=== PATIENT | male | born 1980 | race Caucasian/White ===

== ENCOUNTER 2016-05-16 00:56 | Emergency (ER) | payer OTHER ==
[~2016-05-16] VITALS: Ht 177.8 cm; Wt 96.3 kg
[2016-05-16 01:00] VITALS: TEMP 37.2; Ht 177.8 cm; Wt 96.3 kg
[2016-05-16] MEDS ORDERED: BENZ1CAP90 PO (02:19)
[2016-05-16] MEDS ORDERED: HYDR5SYP11 PO (02:19)
--- NOTE | 2016-05-16 02:22 | EMERGENCY ROOM VISIT NOTE ---
History First contact with patient: 01:03 Chief Complaint: COUGH Stated Complaint: COUGH Nursing Triage Summary: Productive cough since Thursday. Unable to sleep. History of Present Illness The patient is a 36 year old male who presents to the Emergency Room with complaints of a productive cough for the past 4 days. The patient reports that he has had a cough productive of clear phlegm for the past 4 days. He has also had a runny nose and a sore throat, which he feels is due to coughing. He has had difficulty sleeping due to the cough. He rates his discomfort a 6/10. He denies any chest pain or shortness of breath. He did not receive an influenza vaccine this year. He has taken Vicks [id number] with no relief. Review of Systems A complete 10-point Review of Systems was discussed with the patient, with pertinent positives and negatives listed in the History of Present Illness. All remaining Review of Systems questions can be considered negative unless otherwise specified. Past Medical/Surgical History Medical Problems: (1) Acute Bronchitis (2) Asthma, Unspecified (3) Contact dermatitis (4) Contact dermatitis (5) Contact dermatitis (6) Dental caries (7) Dental caries (8) Dental caries (9) Pain, dental (10) Pain, dental (11) Personal History, Pneumonia (Recurrent) (12) Tobacco Use Disorder Family History Diabetes mellitus FH: heart disease Social History Smoking Status: Current Every Day Smoker Alcohol Use: occasionally Marital Status: single Housing Status: lives with family Occupation Status: employed Current/Historical Medications Scheduled PRN Benzonatate (Tessalon Perles), 200 MG PO TID PRN for Cough Allergies Coded Allergies: No Known Allergies (Unverified , 05/16/16) Physical Exam Vital Signs Date Time Temp Pulse Resp B/P Pulse Ox O2 Delivery O2 Flow Rate FiO2 05/16/16 02:26 77 16 134/78 97 05/16/16 01:13 95 Room Air 05/16/16 01:00 37.2 79 20 132/91 95 Room Air Physical Exam VITALS: Vitals are noted on the nurse's note and reviewed by myself. Vital signs stable. GENERAL: This is a 36-year-old male, in no acute distress, nondiaphoretic, well- developed well-nourished. SKIN: Capillary reflex less than 2 seconds. HEENT: Normocephalic. PERRLA. EOMI. Nares patent. Mucous membranes moist. Neck is supple without nuchal rigidity. HEART: Regular rate and rhythm without murmurs gallops or rubs. LUNGS: Clear to auscultation bilaterally without wheezes, rales or rhonchi. No retractions or accessory muscle use. ABDOMEN: Positive bowel sounds x 4. Soft, nontender to palpation. NEURO: Patient was alert and oriented to person place and time. Medical Decision & Procedures Medications Administered Medications (Trade) Dose Ordered Sig/Lidia Route Start Time Stop Time Status Last Admin Dose Admin Hydrocodone Bit/ Homatropine Methylb (Hycodan Elix Homepack 5/1.5MG/ 5ML) 1 homepack UD ONCE PO 05/16/16 02:30 05/16/16 02:31 DC 05/16/16 02:25 1 HOMEPACK Medical Decision Differential diagnosis includes influenza, pneumonia, bronchitis, viral syndrome , among others. The patient was evaluated as above. Lungs are clear on examination. Patient is afebrile. Chest x-ray was performed and read by myself and my attending with no evidence of pneumonia, pneumothorax or cardiomegaly. He likely has an acute bronchitis. The patient is a smoker. He was given a home pack of Hycodan cough syrup and prescription for Tessalon Perles. He was instructed to follow-up with his primary care provider or return for worsening symptoms. He verbalized understanding of my assessment and treatment plan and was discharged home in good condition. Impression Primary Impression: Cough Departure Information Dispostion Home / Self-Care Condition GOOD Prescriptions Benzonatate (Tessalon Perles) 200 Mg Cap 200 MG PO TID Y for Cough, #30 CAP Prov: Makenzie Natarajan ., ELIZABETH 05/16/16 Referrals No Doctor, Assigned (PCP) Patient Instructions My [facility] Additional Instructions Hycodan cough syrup as needed. This is a narcotic medication. You may not drink or drive while taking this medication. Tessalon Perles as prescribed. Follow-up with your primary care provider if your symptoms do not improve in the next 4-5 days.
[2016-05-16 02:26] VITALS: BP 134/78; PULSE 77; O2SAT 97
[2016-05-16] MEDS ORDERED: HYCODAN 60ML BOTTLE HOMEPACK PO ONE (02:30)
--- NOTE | 2016-05-16 06:36 | DIAGNOSTIC IMAGING REPORT ---
CHEST 2 VIEWS ROUTINE CLINICAL HISTORY: productive cough COMPARISON STUDY: No previous studies for comparison. FINDINGS: The cardiac and mediastinal contours are normal. There is no evidence of focal pulmonary consolidation. There is no evidence of failure. No pleural effusions are visualized.[ IMPRESSION: No active disease in the chest. Electronically signed by: Vishal Burch M.D. 05/16/2016 6:34 AM Dictated Date/Time: 05/16/2016 6:34 AM
== END 2016-05-16 02:27 | disposition home or self-care (01) ==
LOC: C.EDB 00:57
DX: R05 Cough (principal); J02.9 Acute pharyngitis, unspecified; J45.909 Unspecified asthma, uncomplicated; Z87.01 Personal history of pneumonia (recurrent); Z87.09 Personal history of other diseases of the respiratory system; Z83.3 Family history of diabetes mellitus; Z82.49 Family history of ischemic heart disease and other diseases of the circulatory system; F17.200 Nicotine dependence, unspecified, uncomplicated

== ENCOUNTER 2017-04-23 17:45 | Emergency (ER) | payer OTHER ==
[~2017-04-23] VITALS: Ht 175.3 cm; Wt 88.6 kg
[2017-04-23 17:53] VITALS: Ht 175.3 cm; Wt 88.6 kg
[2017-04-23] MEDS ORDERED: ACET-1256 PO (19:52)
--- NOTE | 2017-04-23 19:52 | EMERGENCY ROOM VISIT NOTE ---
History Report prepared by Arleth: Evette Rasheed Under the Supervision of: Dr. Cody Peter M.D. First contact with patient: 19:25 Chief Complaint: FLU LIKE SX Stated Complaint: FEVER, COUGHING, HURT ALL OVER History of Present Illness The patient is a 37 year old male who presents to the Emergency Room with complaints of worsening flu-like symptoms starting a week ago. The patient states that he has not been able to sleep well since this all started. The patient complains of body aches, productive cough, fever, runny nose, diarrhea, and headache. He states that he has chest pain when he coughs and it produces green phlegm. The patient denies nausea, vomiting, ear ache, and getting the flu shot this year. Source of History: patient Onset: a week ago Position: other (global) Quality: other (flu-like) Timing: worsening Associated Symptoms: + fevers, + headache, + cough (productive), + chest pain, + diarrhea, No nausea, No vomiting Note: The patient complains of body aches and runny nose. The patient denies an ear ache. Review of Systems See HPI for pertinent positives & negatives. A total of 10 systems reviewed and were otherwise negative. Past Medical & Surgical Medical Problems: (1) Acute Bronchitis (2) Asthma, Unspecified (3) Contact dermatitis (4) Contact dermatitis (5) Contact dermatitis (6) Dental caries (7) Dental caries (8) Dental caries (9) Pain, dental (10) Pain, dental (11) Personal History, Pneumonia (Recurrent) (12) Tobacco Use Disorder Family History Diabetes mellitus FH: heart disease Social History Smoking Status: Current Every Day Smoker Alcohol Use: occasionally Marital Status: single Housing Status: lives with family Occupation Status: employed Current/Historical Medications Scheduled Acetaminophen (Tylenol), 1,000 MG PO DAILY Azithromycin (Zithromax Z-Antonio), 0 PO UD Oseltamivir (Tamiflu), 75 MG PO BID Allergies Coded Allergies: No Known Allergies (Unverified , 04/23/17) Physical Exam Vital Signs Date Time Temp Pulse Resp B/P (MAP) Pulse Ox O2 Delivery O2 Flow Rate FiO2 04/23/17 21:14 77 16 118/74 97 Room Air 04/23/17 20:18 37.5 69 16 125/65 97 Room Air 04/23/17 19:01 37.0 88 18 115/76 96 Room Air 04/23/17 17:53 36.9 93 18 136/84 96 Room Air Physical Exam General: Non-ill appearing older male in no acute distress. HEENT: Normal cephalic atraumatic. Pupils are equal round and reactive to light. Extraocular movements are intact. Oropharynx is pink with moist mucous membranes. No swelling of the mouth lips or tongue. Normal TMs. Neck: Supple with a midline trachea. No meningeal signs or stiffness, no JVD or bruits. No Stridor. Chest: Clear to auscultation bilaterally. No wheezes or rhonchi. No increased work of breathing. Deep hacking intermittent cough. No respiratory distress. Heart: regular rate and rhythm. Abdomen: Soft nontender, nondistended without rebound guarding or rigidity. Extremities: No cyanosis clubbing or edema. No calf tenderness or assymetry Spine/Back. Non tender to palpation. No CVA tenderness Skin: Good turgor without rashes. Neurologic exam: Cranial nerves two through 12 are intact. Motor and sensation are intact and symmetrical throughout. Medical Decision & Procedures ER Provider Diagnostic Interpretation: Radiology results as stated below per my review and radiologist interpretation: CHEST ONE VIEW PORTABLE CLINICAL HISTORY: 37 years-old Male presenting with CHEST PAIN. TECHNIQUE: Portable upright AP view of the chest was obtained. COMPARISON: 05/16/2016. FINDINGS: Cardiomediastinal silhouette normal. Lungs and pleural spaces clear. Osseous structures normal. Upper abdomen normal. IMPRESSION: 1. No acute cardiopulmonary disease. Electronically signed by: Laci Muñoz M.D. 04/23/2017 7:50 PM Dictated Date/Time: 04/23/2017 7:49 PM Laboratory Results Test 04/23/17 19:45 Influenza Type A Antigen POS for Influ A (NEG) Influenza Type B Antigen Neg for Influ B (NEG) Laboratory studies as stated above per my review. Medications Administered Medications (Trade) Dose Ordered Sig/Lidia Route Start Time Stop Time Status Last Admin Dose Admin Acetaminophen (Tylenol Tab) 650 mg NOW STAT PO 04/23/17 21:02 04/23/17 21:04 DC 04/23/17 21:11 650 MG Oseltamivir Phosphate (Tamiflu Cap) 75 mg NOW STAT PO 04/23/17 21:02 04/23/17 21:04 DC 04/23/17 21:11 75 MG Azithromycin (Zithromax Tab) 500 mg NOW ONCE PO 04/23/17 21:15 04/23/17 21:16 DC 04/23/17 21:11 500 MG ECG Indication: chest pain Rate (beats per minute): 75 Rhythm: normal sinus Findings: no acute ischemic change, no ectopy, other (normal QT-c) Change: Patient's electrocardiogram was interpreted by me. ED Course 1926: Past medical records reviewed. The patient was evaluated in room C12B, and a complete history and physical examination were performed. 2054: Upon reevaluation, the patient is resting comfortably. I discussed the results and treatment plan with him. He verbalized agreement of the treatment plan. The patient was discharged home. Medical Decision Differential diagnoses include bronchitis, pneumonia, influenza, cardiac disease , viral illness. This patient comes in as described above he is flulike symptoms and a cough. They're going on for several days. He looks well on exam for except for coughing. He has a low-grade temperature. He is non-hypoxemic. His lungs are clears. Chest x-ray was unremarkable. EKG does not show anything to suggest acute coronary syndrome or arrhythmia. He is nontoxic and non-lethargic. Influenza was positive. I'll treat him with Tamiflu as well as his daughter. He will be charged home. He'll follow-up with his regular doctor for recheck and couple days or return if any new problems or concerns Medication Reconcilliation Current Medication List: was personally reviewed by me Blood Pressure Screening Patient's blood pressure: Normal blood pressure Blood pressure disposition: Did not require urgent referral Impression Primary Impression: Influenza Additional Impression: Bronchitis Scribe Attestation The scribe's documentation has been prepared under my direction and personally reviewed by me in its entirety. I confirm that the note above accurately reflects all work, treatment, procedures, and medical decision making performed by me. Departure Information Dispostion Home / Self-Care Prescriptions Oseltamivir (Tamiflu) 75 Mg Cap 75 MG PO BID, #10 CAP Prov: Cody Peter M.D. 04/23/17 Azithromycin (ZITHROMAX Z-ANTONIO) 250 Mg Tab 0 PO UD, #1 PKT Prov: Cody Peter M.D. 04/23/17 Referrals No Doctor, Assigned (PCP) Forms HOME CARE DOCUMENTATION FORM, IMPORTANT VISIT INFORMATION Patient Instructions My [facility] [place] [facility] Additional Instructions Rest. Drink plenty of fluids. Use Tamiflu 75 mg twice a day for 5 days Use azithromycin Z-Antonio as directed May use [id number] cough suppressant such as Robitussin-DM May use Tylenol/acetaminophen a maximum of 650 mgs every 6 hours. Do not take with any other medications that contain acetaminophen. Do not exceed this dosing as it can be harmful to your liver Return if: Worsening symptoms, any new problems or concerns. Problem Qualifiers
[2017-04-23 20:18] VITALS: TEMP 37.5
[2017-04-23 20:26] LABS: INFLUENZA B ANTIGEN Neg for Influ B (NEG)
[2017-04-23] MEDS ORDERED: OSELTAMIVIR PHOSPHATE 75 MG CAP PO STA (21:02)
[2017-04-23] MEDS ORDERED: ACETAMINOPHEN 325 MG TAB PO STA (21:02)
[2017-04-23] MEDS ORDERED: OSEL75CA12 PO (21:05)
[2017-04-23] MEDS ORDERED: AZITTAB PO (21:05)
[2017-04-23 21:14] VITALS: BP 118/74; PULSE 77; O2SAT 97
[2017-04-23] MEDS ORDERED: AZITHROMYCIN 250 MG TAB PO ONE (21:15)
== END 2017-04-23 21:15 | disposition home or self-care (01) ==
LOC: C.EDB 17:46 → C.EDC 21:15
DX: J11.1 Influenza due to unidentified influenza virus with other respiratory manifestations (principal); F17.210 Nicotine dependence, cigarettes, uncomplicated

== ENCOUNTER 2022-11-12 09:46 | Inpatient (IN) ==
[2022-11-12] MEDS ORDERED: SODIUM CHLORIDE 0.9% 1,000 ML IV ONE ×2 (10:17→11:26)
[2022-11-12] MEDS ORDERED: fentaNYL citrate PF 100 MCG/2 ML VIAL IV STA (10:17)
--- NOTE | 2022-11-12 10:20 | Emergency Department Note ---
Impression & Plan Diverticulitis ED Provider Note HISTORY OF PRESENT ILLNESS: Patient is a 42-year-old male presenting with left lower quadrant and left low back pain. Patient reports that he was diagnosed with diverticulitis a week ago and has been taking his antibiotic as prescribed. However, in the last 24 hours he has had significant worsening of the pain in his left lower quadrant which ra diates into his left low back. He states he is felt diaphoretic and chilled but has not measured his temperature. Denies any dysuria or hematuria. Denies any nausea, vomiting or diarrhea. Denies any chest pain or shortness of breath ROS: as above PHYSICAL EXAM: Constitutional: Patient appears in no acute distress. HENT: Head: Normocephalic and atraumatic. Eyes: EOMI, PERRL Mouth/Throat: Mucous membranes moist. Neck: Trachea midline. Neck supple. Cardiovascular: RRR, No murmurs, rubs or gallops. Intact distal pulses. Pulmonary/Chest: No respiratory distress. Breath sounds clear and equal bilaterally. No wheezes or rales. Abdominal: Abdomen soft, no rebound or guarding. LLQ TTP Musculoskeletal: No edema, tenderness or deformity noted. Skin: Warm and dry. No rash, erythema, pallor or cyanosis Psychiatric: Appropriate mood and affect for situation. Neurological: Alert and keenly responsive. CN II-XII grossly intact, moving all extremities equally and fully. MDM: - Vitals signs stable. - History obtained via patient. Patient presents with worsening left lower quadrant and left low back pain. Patient was diagnosed with acute diverticulitis a week ago and has been taking outpatient antibiotics as prescribed. However, in the last 24 hours she has had significant worsening of his abdominal pain. - Chronic conditions affecting care: none - Differential diagnoses include, but are not limited to: colitis; diverticulitis; diverticular abscess; ureteral stone; UTI - Order placed for continuous cardiac monitoring. At this time, monitor showed rate of 86 bpm with normal sinus rhythm, per my interpretation. - External medical records reviewed. ER visit note from 11/02/2022 was reviewed. Patient was diagnosed with acute diverticulitis and prescribed Augmentin. - Laboratory workup interpreted by myself showed leukocytosis (WBC 23.70) with left shift; stable electrolytes; normal lipase; elevated lactate (2.2) - CT abdomen/pelvis with IV antibotics showed acute diverticulitis of the distal descending colon and an interval development of acute diverticulitis of the proximal sigmoid colon. - Patient given 1L NS, 4 mg IV zofran and 50 mcg IV fentanyl for symptom management in ER. Given an additional 1L NS and IV zosyn for antibiotic therapy. - Discussion was had with bilingual social worker about patient's case and need for admission - Hospitalist consulted for admission - [facility] and [facility]. ASSESSMENT AND PLAN: Diagnosis: acute diverticulitis Plan: admit Past Med/Surg History Medical History (Updated 11/12/22 @ 12:41 by Kan Tadeo MD) No chronic diseases present Tobacco use disorder Surgical History No significant past surgical history Social History Smoking Status: Current every day smoker Tobacco Type: Cigarettes Preferred Language: [place] Feels Safe at Home: Yes Allergies Allergies Allergy/AdvReac Type Severity Reaction Status Date / Time No Known Allergies Allergy Verified 11/12/22 11:10 Home Meds Previous Rx's Medication Instructions Recorded amoxicillin 875 mg-potassium 1 tab PO TID 10 days #30 tabs 11/07/22 clavulanate 125 mg tablet Results & Data (ED) Vital Signs Vital Signs - 24 hr 11/12/22 09:55 11/12/22 10:07 Temperature 36.8 C Temperature Source Temporal Artery Scan Pulse Rate 86 Respiratory Rate 20 Respiratory Effort / Characteristics Non-Labored Respiratory Depth Normal Blood Pressure [Right Arm] 112/58 L Blood Pressure Mean [Right Arm] 76 Pulse Oximetry 100 Oxygen Delivery Method Room Air Sepsis Recent Fever Within 48 Hours No Sepsis New/Unexplained Change in Mental Status No Sepsis Action Taken by Nursing No Action Required Laboratory Data 11/12/22 10:40 11/12/22 10:40 Lab Results 11/12/22 11/12/22 11/12/22 Range/Units 10:40 10:40 10:40 WBC 23.70 H (4.8-10.8) K/ul RBC 5.15 (4.70-6.10) M/uL Hgb 16.4 (14.0-18.0) g/dl Hct 46.7 (42.0-52.0) % MCV 90.7 (80.0-100.0) fL MCH 31.8 (25.0-34.0) pg MCHC 35.1 (32.0-36.0) g/dL RDW Std Deviation 40.4 (36.4-46.3) fL RDW Coeff of Adrienne 12.1 (11.5-14.5) % Plt Count 219 (130-400) K/uL MPV 10.1 (9.4-12.4) fL Immature Gran % (Auto) 0.5 % Neut % (Auto) 87.9 % Lymph % (Auto) 4.7 % [place] % (Auto) 6.3 % Eos % (Auto) 0.3 % Baso % (Auto) 0.3 % Neut # (Auto) 20.84 H (1.40-6.50) K/uL Lymph # (Auto) 1.12 L (1.20-3.40) K/uL [place] # (Auto) 1.50 H (0.11-0.59) K/uL Eos # (Auto) 0.06 (0.00-0.50) K/uL Baso # (Auto) 0.06 (0.00-0.20) K/uL Immature Gran # (Auto) 0.12 (0.01-0.20) K/uL Sodium 136 (136-145) mmol/L Potassium 3.6 (3.5-5.1) mmol/L Chloride 104 (98-107) mmol/L Carbon Dioxide 25 (21-32) mmol/L Anion Gap 7 (3-11) BUN 11 (6-23) mg/dl Creatinine 0.85 (0.6-1.4) mg/dl Est Cr Clr Drug Dosing 121.7 ml/min Est GFR ( Amer) 123.7 ml/min Est GFR (Non-Af Amer) 106.7 ml/min BUN/Creatinine Ratio 12.9 (10-20) Glucose 93 (70-99(Fasting)) mg/dl Lactate 2.2 H* (0.4-2.0) mmol/L Calcium 9.3 (8.6-10.3) mg/dl Total Bilirubin 1.0 (0.2-1.0) mg/dl AST 16 (13-39) U/L ALT 13 (7-52) U/L Alkaline Phosphatase 80 (34-104) U/L Total Protein 7.6 (6.0-8.3) gm/dl Albumin 4.7 (3.4-5.0) gm/dl Globulin 2.9 (2.5-4.0) gm/dl Albumin/Globulin Ratio 1.6 (0.9-2) Lipase 19 (11-82) U/L Administered Medications Discontinued Medications Fentanyl Citrate (Fentanyl Citrate Pf 100 Mcg/2 Ml Vial) 50 mcg IV NOW STA Stop: 11/12/22 10:18 Last Admin: 11/12/22 10:42 Dose: 50 mcg Documented By: PABLITO Sodium Chloride (Nss 1000ml) 1,000 mls @ 999 mls/hr IV .Q1H1M ONE Stop: 11/12/22 11:17 Last Infusion: 11/12/22 11:35 Dose: 0 mls/hr Documented By: Admin: 11/12/22 10:30 Dose: 999 mls/hr Documented By: PABLITO Piperacillin Sod/Tazobactam Sod (Zosyn) 4.5 gm in 120 mls @ 240 mls/hr IV NOW ONE Stop: 11/12/22 11:55 Last Admin: 11/12/22 12:00 Dose: 240 mls/hr Documented By: PABLITO Sodium Chloride (Nss 1000ml) 1,000 mls @ 999 mls/hr IV .Q1H1M ONE Stop: 11/12/22 12:26 Last Admin: 11/12/22 12:01 Dose: 999 mls/hr Documented By: PABLITO Ioversol (Optiray 320 100ml) 93 ml IV ONCE ONE Stop: 11/12/22 11:54 Last Admin: 11/12/22 11:56 Dose: 93 ml Documented By: LIZ Ondansetron HCl (Ondansetron Inj 2 Mg/Ml 2 Ml Vial) 4 mg IV NOW STA Stop: 11/12/22 10:31 Last Admin: 11/12/22 10:42 Dose: 4 mg Documented By: PABLITO Ondansetron HCl (Ondansetron Inj 2 Mg/Ml 2 Ml Vial) Confirm Administered Dose 4 mg .ROUTE .STK-MED ONE Stop: 11/12/22 10:32 Last Admin: 11/12/22 10:45 Dose: Not Given Documented By: PABLITO Imaging Data Radiologist's Impression: Abdomen/Pelvis CT 11/12/22 10:17 CT OF THE ABDOMEN AND PELVIS WITH CONTRAST CLINICAL HISTORY: LLQ abdominal pain; hx of diverticulitis COMPARISON STUDY: CT of the abdomen and pelvis November 06, 2022. TECHNIQUE: Following IV administration of 93 mL of Optiray, axial images of the abdomen and pelvis were obtained from the lung bases to the proximal femurs. Images were reviewed in the axial, sagittal, and coronal planes. IV contrast was administered without complication. Automated exposure control was utilized for the study. A dose lowering technique was utilized adhering to the principles of ALARA. CT DOSE: 1160.72 mGy.cm FINDINGS: Lung bases are unremarkable. No pneumatosis, free air or portal venous gas is present. Liver, spleen, adrenal glands and pancreas are unremarkable. A few small bilateral renal calculi measure up to 4 mm. There are no ureteral calculi. There is no hydronephrosis. A 1.5 cm hypodense lesion within the midpole of the right kidney is difficult to characterize given its small size. This measures above water attenuation but probably reflects a cyst. There is no biliary or pancreatic ductal dilatation dictation. Major vasculature is patent. There is no evidence for acute appendicitis. Colonic diverticulosis is noted. There is an inflamed diverticulum of the distal descending colon with minimal adjacent infiltration. The adjacent infiltration has slightly decreased since prior exam. There is no free air. No abscess. However, inflammation adjacent to a diverticulum of the proximal sigmoid colon has developed with a small amount of fluid. This suggests an additional site of diverticulitis. There is no lymphadenopathy. IMPRESSION: Acute diverticulitis of the distal descending colon which was shown on prior CT. Interval development of an additional focus of acute diverticulitis of the proximal sigmoid colon. Colonic wall thickening with a small amount of fluid within inflammation. No free air or abscess. ACT 112: Negative or not required by law. Electronically signed by: Luiz Nelson M.D. 11/12/2022 12:12 PM Discharge Plan Visit Data Chief Complaint: Illness Stated Complaint: DIVERTICULITIS,CHILLS, SWEATS ED Provider: Maricel Pereira Discharge Problem: Diverticulitis Forms Stand Alone Forms: [employer] Prescriptions Prescriptions: No Action amoxicillin-pot clavulanate 875-125 mg tablet 1 tab PO TID 10 Days Qty: 30 0RF Referrals Referrals: PCP,NO [Primary Care Provider] -
[2022-11-12] MEDS ORDERED: ONDANSETRON INJ 2 MG/ML 2 ML VIAL IV STA (10:30)
[2022-11-12] MEDS ORDERED: ONDANSETRON INJ 2 MG/ML 2 ML VIAL ONE (10:31)
[2022-11-12 11:10] LABS: Hematocrit (blood only) 46.7 % (42.0-52.0); Hemoglobin 16.4 g/dl (14.0-18.0); Mean Corpuscular Hemoglobin 31.8 pg (25.0-34.0); Mean Corpuscular Hgb Conc 35.1 g/dL (32.0-36.0); Mean Corpuscular Volume 90.7 fL (80.0-100.0); Mean Platelet Volume 10.1 fL (9.4-12.4); Platelet Count 219 K/uL (130-400); RDW Coefficient of Variation 12.1 % (11.5-14.5); RDW Standard Deviation 40.4 fL (36.4-46.3); Red Blood Count 5.15 M/uL (4.70-6.10)
[2022-11-12] MEDS ORDERED: PIPERACILLIN/TAZOBACTAM 4.5 GM/120 ML BAG IV ONE (11:26)
[2022-11-12 11:29] LABS: Albumin Globulin Ratio 1.6 (0.9-2); Albumin Level 4.7 gm/dl (3.4-5.0); BUN Creatinine Ratio 12.9 (10-20); Calcium 9.3 mg/dl (8.6-10.3); Creatinine Clr Calc Pharmacy 121.7 ml/min; Est GFR (African American) 123.7 ml/min; Est GFR (Non-African American) 106.7 ml/min; Globulin 2.9 gm/dl (2.5-4.0); Potassium 3.6 mmol/L (3.5-5.1); Total Protein 7.6 gm/dl (6.0-8.3)
[2022-11-12 11:41] LABS: Basophils # (auto) 0.06 K/uL (0.00-0.20); Basophils % (auto) 0.3 %; Eosinophils # (auto) 0.06 K/uL (0.00-0.50); Eosinophils % (auto) 0.3 %; Immature Granulocytes # (auto) 0.12 K/uL (0.01-0.20); Immature Granulocytes % (auto) 0.5 %; Lymphocytes # (auto) 1.12 K/uL (1.20-3.40); Lymphocytes % (auto) 4.7 %; Monocytes % (auto) 6.3 %; Neutrophils # (auto) 20.84 K/uL (1.40-6.50); Neutrophils % (auto) 87.9 %
[2022-11-12] MEDS ORDERED: OPTIRAY 320 100ml IV ONE (11:53)
--- NOTE | 2022-11-12 12:14 | CT Scan Report ---
CT OF THE ABDOMEN AND PELVIS WITH CONTRAST CLINICAL HISTORY: LLQ abdominal pain; hx of diverticulitis COMPARISON STUDY: CT of the abdomen and pelvis November 06, 2022. TECHNIQUE: Following IV administration of 93 mL of Optiray, axial images of the abdomen and pelvis we re obtained from the lung bases to the proximal femurs. Images were reviewed in the axial, sagittal, and coronal planes. IV contrast was administered without complication. Automated exposure control wa s utilized for the study. A dose lowering technique was utilized adhering to the principles of ALARA . CT DOSE: 1160.72 mGy.cm FINDINGS: Lung bases are unremarkable. No pneumatosis, free air or portal venous gas is present. Live r, spleen, adrenal glands and pancreas are unremarkable. A few small bilateral renal calculi measure up to 4 mm. There are no ureteral calculi. There is no hydronephrosis. A 1.5 cm hypodense lesion with in the midpole of the right kidney is difficult to characterize given its small size. This measures a an[place] water attenuation but probably reflects a cyst. There is no biliary or pancreatic ductal dilatat ion dictation. Major vasculature is patent. There is no evidence for acute appendicitis. Colonic dive rticulosis is noted. There is an inflamed diverticulum of the distal descending colon with minimal ad jacent infiltration. The adjacent infiltration has slightly decreased since prior exam. There is no f ree air. No abscess. However, inflammation adjacent to a diverticulum of the proximal sigmoid colon h as developed with a small amount of fluid. This suggests an additional site of diverticulitis. There is no lymphadenopathy. IMPRESSION: Acute diverticulitis of the distal descending colon which was shown on prior CT. Interval development of an additional focus of acute diverticulitis of the proximal sigmoid colon. Colonic w all thickening with a small amount of fluid within inflammation. No free air or abscess. ACT 112: Negative or not required by law. Electronically signed by: Luiz Nelson M.D. 11/12/2022 12:12 PM
--- NOTE | 2022-11-12 12:33 | History & Physical Report ---
Date of Service November 12, 2022 Assessment & Plan (1) Diverticulitis: Plan: Failed outpatient Augmentin NPO, IV fluids IV Zosyn Acetaminophen IV for pain 1st line, morphine 2nd line, Ondansetron for nausea (2) Tobacco use disorder: Plan: Offered nicotine path but declined at this time Plan VTE Prophyalxis - low risk Diet - NPO Disposition - admit to med/surg Admission and Anticipated Discharge Date Admission Date: November 12, 2022 History of Present Illness Chief Complaint: Abdominal pain Primary Care Provider: NO PCP Lars Linder is a 42 year old who presents to the ER with worsening of his abdominal pain. He was diagnosed with acute diverticulitis 6 days ago but pain started 10 days ago. He was seen in the ER started on Augmentin and was compliant with a soft diet. He notes doing well until severe worsening last night radiating around to back. Pain severity 9/10 at worst, currently 5/10. Associated chills but no objective fever. Associated nausea and vomiting. Unable to eat. Soft stool but no diarrhea. Allergies Allergy/AdvReac Type Severity Reaction Status Date / Time No Known Allergies Allergy Verified 11/12/22 11:10 Home Medications Medication Instructions Recorded Confirmed Type amoxicillin 875 mg-potassium 1 tab PO TID 10 days #30 tabs 11/07/22 11/12/22 Rx clavulanate 125 mg tablet Past Med/Surg History Medical History (Updated 11/12/22 @ 12:41 by Kan Tadeo MD) No chronic diseases present Tobacco use disorder Surgical History No significant past surgical history Social History Smoking Status: Current every day smoker Tobacco Type: Cigarettes Second Hand Exposure: No; Do You Dip or Chew Tobacco: Yes; Tobacco Cessation Education Requested by Patient: No Hx Alcohol Use: No Hx Substance Use: Yes Last Used Substance Other:: last night before bed Substance Use Type Other:: medical marijuana Preferred Language: Indonesian Communication Ability: Effective Corn Husk Baler Required: No Beliefs That Will Affect Care: None Current Living Situation: Homeless Current Living Situation Comment: lives in his chair. Other Information That Helps Us Care for You: No Feels Safe at Home: No Is there a partner from a previous relationship who is making you feel unsafe now?: No Any Concerns about Your Family Situation: No Would You Like to Speak to Someone About Your Situation: No Safety Concerns: Feels Safe At This Time Assistive Devices: Glasses Review of Systems Review of Systems: All systems reviewed & are unremarkable except as noted in HPI & below Physical Exam Constitutional: WD/WN, vitals as above Eyes: + anicteric sclerae; normal pupil size Respiratory: normal respiratory effort, lungs clear to auscultation Cardiovascular: RRR, no murmur, no edema Gastrointestinal (Abdomen): Inspection/Auscultation: abdomen normal to inspection; abdomen not distended Percussion/Palpation: + abdomen tender (LLQ pain), + guarding and abdomen soft; abdomen not rigid Skin: no rashes, warm and dry Neurologic: moves all extremities and awake; not confused Psychiatric: A+Ox3, euthymic affect Results & Data Results & Data Vital Signs (Past 12 Hours) Vital Signs Temp Pulse Resp BP Pulse Ox O2 Del Method 11/12/22 10:07 112/58 L 11/12/22 09:55 36.8 C 86 20 100 Room Air Laboratory Results Abnormal lab results 11/12/22 11/12/22 Range/Units 10:40 10:40 WBC 23.70 H (4.8-10.8) K/ul Neut # (Auto) 20.84 H (1.40-6.50) K/uL Lymph # (Auto) 1.12 L (1.20-3.40) K/uL Glenn # (Auto) 1.50 H (0.11-0.59) K/uL Lactate 2.2 H* (0.4-2.0) mmol/L Diagnostic Findings CT OF THE ABDOMEN AND PELVIS WITH CONTRAST CLINICAL HISTORY: LLQ abdominal pain; hx of diverticulitis COMPARISON STUDY: CT of the abdomen and pelvis November 06, 2022. TECHNIQUE: Following IV administration of 93 mL of Optiray, axial images of the abdomen and pelvis were obtained from the lung bases to the proximal femurs. Images were reviewed in the axial, sagittal, and coronal planes. IV contrast was administered without complication. Automated exposure control was utilized for the study. A dose lowering technique was utilized adhering to the principles of ALARA. CT DOSE: 1160.72 mGy.cm FINDINGS: Lung bases are unremarkable. No pneumatosis, free air or portal venous gas is present. Liver, spleen, adrenal glands and pancreas are unremarkable. A few small bilateral renal calculi measure up to 4 mm. There are no ureteral calculi. There is no hydronephrosis. A 1.5 cm hypodense lesion within the midpole of the right kidney is difficult to characterize given its small size. This measures above water attenuation but probably reflects a cyst. There is no biliary or pancreatic ductal dilatation dictation. Major vasculature is patent. There is no evidence for acute appendicitis. Colonic diverticulosis is noted. There is an inflamed diverticulum of the distal descending colon with minimal adjacent infiltration. The adjacent infiltration has slightly decreased since prior exam. There is no free air. No abscess. However, inflammation adjacent to a diverticulum of the proximal sigmoid colon has developed with a small amount of fluid. This suggests an additional site of diverticulitis. There is no lymphadenopathy. IMPRESSION: Acute diverticulitis of the distal descending colon which was shown on prior CT. Interval development of an additional focus of acute diverticulitis of the proximal sigmoid colon. Colonic wall thickening with a small amount of fluid within inflammation. No free air or abscess. Medications Administered ER Medications Given: NSS 1L bolus Fentanyl 50 mcg IV Ondansetron 4mg IV Zosyn 4.5g IV Normal saline 1L bolus Code Status & VTE Plan Code Status Full VTE Prophylaxis Plan VTE Prophylaxis will be ordered: No PG Care Time/CCT Total # of Minutes Spent Total Time Spent with Patient: Total time spent is greater than 50% in coordination of care (as documented) at patient's floor/unit and/or counseling patient: Coding Level of Care Code 53433 INT INP/OBS CARE 2/55MIN Diagnoses Diverticulitis K57.92 Tobacco use disorder F17.200
[2022-11-12] MEDS: LACTATED RINGER'S 1,000 ML IV SCH ×2 (13:19→21:09)
[2022-11-12 14:14] LABS: Appearance Urine Clear (Clear); Bilirubin Urine Negative (Negative); Blood Urine Negative (Negative); Color Urine Yellow; Glucose Urine UA Negative (Negative); Ketones Urine 1+ (Negative); Leukocyte Esterase Urine Negative (Negative); Nitrite Urine Negative (Negative); Protein Urine Negative (Negative); Specific Gravity Urine 1.034 (1.000-1.030); Urobilinogen Urine Negative (Negative); pH Urine 7.5 (4.5-7.5)
[2022-11-12] MEDS ORDERED: MoRPHine SULFATE 2 MG/ML CARP IV PRN (15:05)
[2022-11-12] MEDS ORDERED: ONDANSETRON INJ 2 MG/ML 2 ML VIAL IV PRN (15:05)
[2022-11-12] MEDS: MoRPHine SULFATE 4 MG/ML 1 ML CARP\\VIAL IV PRN ×2 (15:43→19:38)
[2022-11-12] MEDS: PIPERACILLIN/TAZOBACTAM 4.5 GM in DEXTROSE 5% 100 ML IV SCH ×2 (15:44→23:30)
[2022-11-12] MEDS: ACETAMINOPHEN 1,000 MG/100 ML VIAL IV PRN (17:40)
[2022-11-13] MEDS: LACTATED RINGER'S 1,000 ML IV SCH ×3 (04:14→19:50)
[2022-11-13] MEDS: MoRPHine SULFATE 4 MG/ML 1 ML CARP\\VIAL IV PRN ×3 (08:00→16:19)
[2022-11-13 08:03] LABS: Basophils # (auto) 0.03 K/uL (0.00-0.20); Basophils % (auto) 0.2 %; Eosinophils # (auto) 0.07 K/uL (0.00-0.50); Eosinophils % (auto) 0.6 %; Hemoglobin 13.6 g/dl (14.0-18.0); Immature Granulocytes # (auto) 0.06 K/uL (0.01-0.20); Immature Granulocytes % (auto) 0.5 %; Lymphocytes # (auto) 1.09 K/uL (1.20-3.40); Lymphocytes % (auto) 8.7 %; Mean Corpuscular Hgb Conc 35.8 g/dL (32.0-36.0); Mean Corpuscular Volume 89.4 fL (80.0-100.0); Mean Platelet Volume 10.4 fL (9.4-12.4); Monocytes # (auto) 0.66 K/uL (0.11-0.59); Monocytes % (auto) 5.2 %; Neutrophils # (auto) 10.68 K/uL (1.40-6.50); Neutrophils % (auto) 84.8 %; Platelet Count 163 K/uL (130-400); RDW Coefficient of Variation 12.2 % (11.5-14.5); RDW Standard Deviation 39.7 fL (36.4-46.3); Red Blood Count 4.25 M/uL (4.70-6.10); White Blood Count 12.59 K/ul (4.8-10.8)
[2022-11-13] MEDS: PIPERACILLIN/TAZOBACTAM 4.5 GM in DEXTROSE 5% 100 ML IV SCH ×2 (08:03→16:22)
[2022-11-13 08:21] LABS: Calcium 8.3 mg/dl (8.6-10.3); Creatinine Clr Calc Pharmacy 124.6 ml/min; Est GFR (African American) 124.9 ml/min; Est GFR (Non-African American) 107.8 ml/min; Magnesium 1.7 mg/dl (1.7-2.4); Potassium 3.9 mmol/L (3.5-5.1)
--- NOTE | 2022-11-13 17:25 | Hospitalist Progress Note ---
Date of Service November 13, 2022 Assessment & Plan (1) Diverticulitis: Plan: Failed outpatient Augmentin after found to have descending diverticulitis on CT last week Now with Sepsis-->fever, leukocytosis, elevated lactate on admission, repeat CT abd/pel with improving distal diverticulitis but with new ascending diverticulitis, no abscess Improved WBC count and pain now after starting IV Zosyn. Moved bowels 11/13 -adv diet to clears -continue IVFs -continue IV Zosyn -Acetaminophen IV for pain 1st line, morphine 2nd line, Ondansetron for nausea -will need colonoscopy in 6 weeks which may prove difficult as he has no insurance--> case managers will help him get Medicaid as he is homeless -follow CBC, CMP, Mag (2) Tobacco use disorder: Plan: Offered nicotine path but declined at this time (3) Sepsis: Plan: as above, (4) Homelessness: Plan: case managers aware and needs PCP, insurance, etc. Plan VTE Prophyalxis - low risk Disposition -continued stay on med/surg Admission and Anticipated Discharge Date Admission Date: November 12, 2022 Subjective Still having some LLQ nd RLQ abd pains but improved from yesterday. Moved his bowels this AM, nonbloody. No nausea. Feels very hungry and would like food. Physical Exam 2 Constitutional: WD/WN, vitals as above ENMT: Mouth: + edentulous Neck: trachea midline, no thyromegaly Respiratory: normal respiratory effort, lungs clear to auscultation Cardiovascular: RRR, no murmur, no edema Chest (Breasts): Chest: normal inspection of chest Gastrointestinal (Abdomen): Inspection/Auscultation: abdomen normal to inspection and normal bowel sounds; abdomen not distended Percussion/Palpation: + abdomen tender (LLQ and RLQ w/o guarding/rebound) and abdomen soft Musculoskeletal: Extremities: extremities normal to inspection; no cyanosis and no clubbing Skin: no rashes, warm and dry Neurologic: moves all extremities and awake; no focal motor deficits Psychiatric: A+Ox3, euthymic affect Lymphatic: no lymphedema Results & Data Results & Data Vital Signs (Past 12 Hours) Vital Signs Temp Pulse Resp BP Pulse Ox O2 Del Method 11/13/22 15:54 37.8 C H 85 16 102/63 96 Room Air 11/13/22 07:12 36.7 C 58 L 16 129/65 97 Room Air Laboratory Results CBC, BMP, magnesium reviewed PG Care Time/CCT Total # of Minutes Spent Total Time Spent with Patient: Total time spent is greater than 50% in coordination of care (as documented) at patient's floor/unit and/or counseling patient: Coding Level of Care Code 36928 SUB INP/OBS CARE 2/35MIN Diagnoses Diverticulitis K57.92 Tobacco use disorder F17.200 Sepsis A41.9 Homelessness Z59.00
[2022-11-13] MEDS: ACETAMINOPHEN 1,000 MG/100 ML VIAL IV PRN (19:53)
[2022-11-14] MEDS: PIPERACILLIN/TAZOBACTAM 4.5 GM in DEXTROSE 5% 100 ML IV SCH ×4 (00:52→23:25)
[2022-11-14] MEDS: LACTATED RINGER'S 1,000 ML IV SCH ×3 (03:22→22:16)
[2022-11-14 06:35] LABS: Basophils # (auto) 0.03 K/uL (0.00-0.20); Basophils % (auto) 0.2 %; Eosinophils # (auto) 0.06 K/uL (0.00-0.50); Eosinophils % (auto) 0.5 %; Hematocrit (blood only) 40.1 % (42.0-52.0); Hemoglobin 14.1 g/dl (14.0-18.0); Immature Granulocytes # (auto) 0.06 K/uL (0.01-0.20); Immature Granulocytes % (auto) 0.5 %; Lymphocytes # (auto) 1.41 K/uL (1.20-3.40); Lymphocytes % (auto) 10.8 %; Mean Corpuscular Hemoglobin 31.9 pg (25.0-34.0); Mean Corpuscular Hgb Conc 35.2 g/dL (32.0-36.0); Mean Corpuscular Volume 90.7 fL (80.0-100.0); Mean Platelet Volume 10.1 fL (9.4-12.4); Monocytes % (auto) 8.4 %; Neutrophils # (auto) 10.37 K/uL (1.40-6.50); Neutrophils % (auto) 79.6 %; Platelet Count 154 K/uL (130-400); RDW Coefficient of Variation 11.9 % (11.5-14.5); RDW Standard Deviation 39.6 fL (36.4-46.3); Red Blood Count 4.42 M/uL (4.70-6.10); White Blood Count 13.03 K/ul (4.8-10.8)
[2022-11-14 06:51] LABS: Albumin Globulin Ratio 1.3 (0.9-2); Albumin Level 3.5 gm/dl (3.4-5.0); Bilirubin,Total 0.8 mg/dl (0.2-1.0); Calcium 8.3 mg/dl (8.6-10.3); Creatinine Clr Calc Pharmacy 137.8 ml/min; Est GFR (African American) 130.2 ml/min; Est GFR (Non-African American) 112.4 ml/min; Globulin 2.6 gm/dl (2.5-4.0); Magnesium 1.8 mg/dl (1.7-2.4); Potassium 3.9 mmol/L (3.5-5.1); Total Protein 6.1 gm/dl (6.0-8.3)
[2022-11-14] MEDS: ACETAMINOPHEN 1,000 MG/100 ML VIAL IV PRN ×2 (07:31→22:27)
--- NOTE | 2022-11-14 17:04 | Hospitalist Progress Note ---
Date of Service November 14, 2022 Assessment & Plan (1) Diverticulitis: Plan: Failed outpatient Augmentin after found to have descending diverticulitis on CT last week Now with Sepsis-->fever, leukocytosis, elevated lactate on admission, repeat CT abd/pel with improving distal diverticulitis but with new ascending diverticulitis, no abscess Clinically improving slowly Now tolerating clear liquid diet WBC count stayed stable around 12-13 Will not advance diet and continue clear liquids today Discontinue IV morphine Pain control with acetaminophen Monitor CBC (2) Tobacco use disorder: Plan: Offered nicotine patch but declined at this time (3) Sepsis: Plan: as above, (4) Homelessness: Plan: high risk case manager aware and needs PCP, insurance, etc. Plan VTE Prophyalxis - low risk Disposition -continued stay on med/surg Admission and Anticipated Discharge Date Admission Date: November 12, 2022 Subjective patient says that his pain is improving. but he still has some pain. Review of Systems Review of Systems: All systems reviewed & are unremarkable except as noted in Subjective Physical Exam Physical Exam: General: Awake, conversant Heart: S1, S2/regular rate and rhythm, no murmur rubs or gallops Lungs: Clear to auscultation bilaterally. Normal effort Abdomen: Soft/nondistended. mild tenderness to palpation in the left lower quadrant with no rebound, rigidity or guarding. No hepatosplenomegaly Extremities: No clubbing/cyanosis. No edema Behavior: Appropriate, cooperative Results & Data Results & Data Vital Signs (Past 12 Hours) Vital Signs Temp Pulse Resp BP Pulse Ox O2 Del Method 11/14/22 14:28 36.8 C 67 18 125/69 97 Room Air 11/14/22 08:27 36.8 C 54 L 16 97/58 L 98 Room Air PG Care Time/CCT Total # of Minutes Spent Total Time Spent with Patient: Total time spent is greater than 50% in coordination of care (as documented) at patient's floor/unit and/or counseling patient: Coding Level of Care Code 47990 SUB INP/OBS CARE 2/35MIN Diagnoses Diverticulitis K57.92 Tobacco use disorder F17.200 Sepsis A41.9 Homelessness Z59.00
[2022-11-15] MEDS: LACTATED RINGER'S 1,000 ML IV SCH ×3 (06:17→22:30)
[2022-11-15 06:27] LABS: Mean Corpuscular Hemoglobin 31.8 pg (25.0-34.0); Mean Corpuscular Volume 90.9 fL (80.0-100.0); Mean Platelet Volume 10.4 fL (9.4-12.4); Platelet Count 164 K/uL (130-400); RDW Coefficient of Variation 11.9 % (11.5-14.5); RDW Standard Deviation 39.8 fL (36.4-46.3); White Blood Count 8.58 K/ul (4.8-10.8)
[2022-11-15 06:48] LABS: BUN Creatinine Ratio 7.6 (10-20); Calcium 8.4 mg/dl (8.6-10.3); Creatinine Clr Calc Pharmacy 130.9 ml/min; Est GFR (African American) 127.5 ml/min; Potassium 3.6 mmol/L (3.5-5.1)
[2022-11-15] MEDS: PIPERACILLIN/TAZOBACTAM 4.5 GM in DEXTROSE 5% 100 ML IV SCH ×2 (08:41→15:19)
--- NOTE | 2022-11-15 14:44 | Hospitalist Progress Note ---
Date of Service November 15, 2022 Assessment & Plan (1) Diverticulitis: Plan: Failed outpatient Augmentin after found to have descending diverticulitis on CT last week Now with Sepsis-->fever, leukocytosis, elevated lactate on admission, repeat CT abd/pel with improving distal diverticulitis but with new ascending diverticulitis, no abscess Clinically improving slowly Tolerating clear liquid diet WBC count normalized Advance to full liquid diet today (2) Tobacco use disorder: Plan: Offered nicotine patch but declined at this time (3) Sepsis: Plan: as above, (4) Homelessness: Plan: rn case manager aware and needs PCP, insurance, etc. Plan VTE Prophyalxis - low risk Disposition -continued stay on med/surg Admission and Anticipated Discharge Date Admission Date: November 12, 2022 Subjective patient is feeling better today. Abdominal pain has resolved. Still having some loose stools. Review of Systems Review of Systems: All systems reviewed & are unremarkable except as noted in Subjective Physical Exam Physical Exam: General: Awake, conversant Heart: S1, S2/regular rate and rhythm, no murmur rubs or gallops Lungs: Clear to auscultation bilaterally. Normal effort Abdomen: Soft/nondistended. Nontender today. No hepatosplenomegaly Extremities: No clubbing/cyanosis. No edema Behavior: Appropriate, cooperative Results & Data Results & Data Vital Signs (Past 12 Hours) Vital Signs Temp Pulse Resp BP Pulse Ox O2 Del Method 11/15/22 07:47 36.4 C L 53 L 18 111/66 98 Room Air Laboratory Results Abnormal lab results 11/15/22 11/15/22 Range/Units 05:16 05:16 RBC 4.40 L (4.70-6.10) M/uL Hct 40.0 L (42.0-52.0) % Chloride 109 H (98-107) mmol/L BUN/Creatinine Ratio 7.6 L (10-20) Calcium 8.4 L (8.6-10.3) mg/dl PG Care Time/CCT Total # of Minutes Spent Total Time Spent with Patient: Total time spent is greater than 50% in coordination of care (as documented) at patient's floor/unit and/or counseling patient: Coding Level of Care Code 42060 SUB INP/OBS CARE 2/35MIN Diagnoses Diverticulitis K57.92 Tobacco use disorder F17.200 Sepsis A41.9 Homelessness Z59.00
[2022-11-16] MEDS: PIPERACILLIN/TAZOBACTAM 4.5 GM in DEXTROSE 5% 100 ML IV SCH ×2 (00:33→07:13)
[2022-11-16] MEDS: LACTATED RINGER'S 1,000 ML IV SCH (06:10)
[2022-11-16 07:15] LABS: Mean Corpuscular Hemoglobin 31.7 pg (25.0-34.0); Mean Corpuscular Volume 90.7 fL (80.0-100.0); Mean Platelet Volume 10.5 fL (9.4-12.4); Platelet Count 188 K/uL (130-400); RDW Coefficient of Variation 11.9 % (11.5-14.5); RDW Standard Deviation 39.8 fL (36.4-46.3); Red Blood Count 4.41 M/uL (4.70-6.10); White Blood Count 8.44 K/ul (4.8-10.8)
[2022-11-16 08:28] LABS: BUN Creatinine Ratio 6.7 (10-20); Calcium 8.5 mg/dl (8.6-10.3); Creatinine Clr Calc Pharmacy 137.8 ml/min; Est GFR (African American) 130.2 ml/min; Est GFR (Non-African American) 112.4 ml/min; Potassium 3.7 mmol/L (3.5-5.1)
--- NOTE | 2022-11-16 09:36 | Discharge Summary ---
Date of Service November 16, 2022 Admission HPI Per Admitting Provider Lars Linder is a 42 year old who presents to the ER with worsening of his abdominal pain. He was diagnosed with acute diverticulitis 6 days ago but pain started 10 days ago. He was seen in the ER started on Augmentin and was compliant with a soft diet. He notes doing well until severe worsening last night radiating around to back. Pain severity 9/10 at worst, currently 5/10. Associated chills but no objective fever. Associated nausea and vomiting. Unable to eat. Soft stool but no diarrhea. Admission Exam Per Admitting Provider Constitutional: WD/WN, vitals as above Eyes: + anicteric sclerae; normal pupil size Respiratory: normal respiratory effort, lungs clear to auscultation Cardiovascular: RRR, no murmur, no edema Gastrointestinal (Abdomen): Inspection/Auscultation: abdomen normal to inspection; abdomen not distended Percussion/Palpation: + abdomen tender (LLQ pain), + guarding and abdomen soft; abdomen not rigid Skin: no rashes, warm and dry Neurologic: moves all extremities and awake; not confused Psychiatric: A+Ox3, euthymic affect Principal Diagnosis Acute diverticulitis Discharge Exam General: Awake, conversant Heart: S1, S2/regular rate and rhythm, no murmur rubs or gallops Lungs: Clear to auscultation bilaterally. Normal effort Abdomen: Soft/nondistended. Nontender today. No hepatosplenomegaly Extremities: No clubbing/cyanosis. No edema Behavior: Appropriate, cooperative Discharge Data Allergies Allergy/AdvReac Type Severity Reaction Status Date / Time No Known Allergies Allergy Verified 11/12/22 11:10 Consultations 11/12/22 12:36 ED Decision to Admit Stat Ordered Studies 11/12/22 10:17 CT abd pelvis IV con only Stat Hospital Course (1) Diverticulitis: Failed outpatient Augmentin after found to have descending diverticulitis on CT last week Presented with Sepsis-->fever, leukocytosis, elevated lactate on admission, repeat CT abd/pel with improving distal diverticulitis but with new ascending diverticulitis, no abscess Clinically improved with the conservative approach with IV antibiotics, bowel rest Now tolerating solid meals Will be discharged on p.o. Augmentin to complete the course (2) Tobacco use disorder: Offered nicotine patch but declined at this time (3) Sepsis: as above, (4) Homelessness: renal case manager aware and needs PCP, insurance, etc. Plan VTE Prophyalxis - low risk Disposition -discharge today Total Time Total Time Spent Total Time Spent (In Minutes): 35 Discharge Plan Discharge Items Patient Disposition: Home - Self-Care Reason For Visit: ACUTE DIVERTICULTITIS Discharge Diagnosis: Acute diverticulitis Activity: Resume your previous activity Non-emergency contact: Primary Care Provider Call non-emergency contact if: you have any medication questions and your symptoms worsen Follow-up/Referrals: PCP,NO [Primary Care Provider] - Diet: Regular Addtl Attending Provider Instructions: advised to follow-up with PCP in 1 week Pending Studies at Discharge: No Stand-Alone Forms: [employer] ([employer]) Medications and DC Order Prescriptions: Continued amoxicillin-pot clavulanate 875-125 mg tablet 1 tab PO TID 3 Days Qty: 30 0RF Discharge Orders: Discharge Order (Routine); Ordered 11/16/22 Ordered By: Hammad Irby Admission Data Admit Date/Time: 11/12/22 12:28 Attending Provider: Hammad Irby Admit Provider: Kan Tadeo Primary Care Provider: PCP,NO Other Providers: Kan Tadeo Coding Level of Care Code 95043 INP/OBS DISCH >30 MIN Diagnoses Diverticulitis K57.92 Tobacco use disorder F17.200 Sepsis A41.9 Homelessness Z59.00
--- OUTSIDE RECORDS SUMMARY | 2022-11-18 01:32 | External Medical Summary | Summary of Care ---
Author Name [place] [address] Care Team Providers Care Manager Of Merchandising Name Role Phone Soraida Evans MD Primary Care Provider Encounter Details Date Type Department Care Team Description 08/18/2020 Immunization Covid19 Vaccine, [facility] [address] [place] [address] Dose, Covid19 Vaccine A [address] [place] [address] Encounter for immunization* Allergies No Known Active Allergiesdocumented as of this encounter (statuses as of 08/18/2020) Medications Medication Sig Dispensed Refills Start Date End Date Status ibuprofen (MOTRIN) 800 MG Tablet Take 1 Tab by mouth 3 times a day as needed for Pain. 45 Tab 1 09/06/2018 Active oxyCODONE-acetaminophe n 5-325 mg per tab (ENDOCET) 5-325 MG per tablet Take 1 Tab by mouth every 6 hours as needed for Pain, Severe. 36 Tab 0 09/06/2018 Active sulfamethoxazole-trime thoprim DS (BACTRIM DS) 800-160 MG per tablet Take 1 Tab by mouth 2 times a day. 30 Tab 0 10/21/2018 Active documented as of this encounter (statuses as of 08/18/2020) Active Problems Problem Noted Date Tobacco use disorder 01/04/2002 documented as of this encounter (statuses as of 08/18/2020) Resolved Problems Problem Noted Date Resolved Date Asthma with severity to be determined 09/10/2009 07/18/2016 Overview: Per Asthma Taxonomy ICD-10 update of inactive term Asthma, allergic 01/04/2002 09/10/2009 documented as of this encounter (statuses as of 08/18/2020) Immunizations Name Administration Dates Next Due COVID-19 mRNA, LNP-s, No Pre serve, 2-Dose Series (Pfizer) 08/18/2020,07/28/2020 Pneumococcal Polysaccharide PPV23 (Pneumovax) TDAP (age 10 and older)(Boostrix) 04/24/2014 documented as of this encounter Social History Tobacco Use Types Packs/Day Years Used Date Current Every Day Smoker Cigarettes 0.5 4 Smokeless Tobacco: Current User Snuff Alcohol Use Drinks/Week oz/Week Comments Yes 3 12 oz of beer 3.0 5-6 beers per week Sex Assigned at Date Recorded Not on file documented as of this encounter Plan of Treatment Health Maintenance Due Date Last Done Comments *DEPRESSION SCREENING,ANNUAL FOR PTS 12 AND OVER 07/31/2018 Influenza Vaccine (FLU shot) (Season Ended) 2020 LIPID SCREEN EVERY 5 YRS-MEN AGE 35-75 06/25/2023 06/24/2018, 07/18/2016 DTaP,Tdap,and Td Vaccines (2 - Td) 04/24/2024 04/24/2014 Pneumococcal Vaccine: Pediatrics (0 to 5 Years) and At-Risk Patients (6 to 64 Years) (2 of 2) 2044 06/17/2018 COVID-19 Vaccine Completed 08/18/2020, 07/28/2020 MENINGOCOCCAL (MENACTRA/MENVEO) Aged Out No longer eligible b ased on patient's age to complete this topic documented as of this encounter Implants Not on filedocumented as of this encounter Visit Diagnoses Diagnosis Encounter for immunization- Primary Need for other specified prophylactic vaccination against single bacterial disease documented in this encounter Advance Directives Documents on File Type Date Recorded Patient Pad Machine Offbearer Expl anation Advanced 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
--- OUTSIDE RECORDS SUMMARY | 2022-11-18 01:32 | External Medical Summary | Summary of Care ---
Author Name [place] [address] Care Team Providers Care Day Porter Name Role Phone Soraida Evans MD Primary Care Provider [phone] Encounter Details Date Type Department Care Team Description 07/28/2020 Immunization Covid19 Vaccine, [facility] [address] [place] [address] Dose, Covid19 Vaccine A [address] [place] [address] Encounter for immunization* Allergies No Known Active Allergiesdocumented as of this encounter (statuses as of 07/28/2020) Medications Medication Sig Dispensed Refills Start Date [...] as of this encounter (statuses as of 07/28/2020) Active Problems Problem Noted Date Tobacco use disorder 01/04/2002 documented as of this encounter (statuses as of 07/28/2020) Resolved Problems Problem Noted Date Resolved Date Asthma with severity to be determined 09/10/2009 07/18/2016 Overview: Per Asthma Taxonomy ICD-10 update of inactive term Asthma, allergic 01/04/2002 09/10/2009 documented as of this encounter (statuses as of 07/28/2020) Immunizations Name Administration Dates Next Due COVID-19 mRNA, LNP-s, No Pre serve, 2-Dose Series (Pfizer) 07/28/2020 Pneumococcal Polysaccharide PPV23 (Pneumovax) TDAP (age 10 [...] as of this encounter Plan of Treatment Upcoming Encounters Date Type Specialty Care Team Description 08/18/2020 Immunization Ancillary Dose, Covid19 Vaccine A [facility] [address] [place] [address] Health Maintenance Due Date Last Done Comments *DEPRESSION SCREENING,ANNUAL FOR PTS 12 AND OVER 07/31/2018 COVID-19 Vaccine (2 - Pfizer 2-dose series) 08/18/2020 07/28/2020 Influenza Vaccine (FLU shot) (Season Ended) 2020 LIPID SCREEN EVERY 5 YRS-MEN AGE 35-75 06/25/2023 06/24/2018, 07/18/2016 DTaP,Tdap,and Td Vaccines (2 - Td) 04/24/2024 04/24/2014 Pneumococcal Vaccine: Pediatrics (0 to 5 Years) and At-Risk Patients (6 to 64 Years) (2 of 2) 2044 06/17/2018 MENINGOCOCCAL (MENACTRA/MENVEO) Aged Out No longer eligible b ased on patient's age to complete this topic documented as of this encounter Implants Not on filedocumented as of this encounter Visit Diagnoses Diagnosis Encounter for immunization- Primary Need for other specified prophylactic vaccination against single bacterial disease documented in this encounter Advance Directives Documents on File Type Date Recorded Patient Energy Audit Advisor Expl anation Advanced 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
--- OUTSIDE RECORDS SUMMARY | 2022-11-18 01:32 | External Medical Summary | Summary of Care ---
Author Name Unknown Organization [facility] Address [place] [address] Care Team Providers Care Hand Roller Engraver Name Role Phone Soraida Evans MD Primary Care Provider Reason for Visit * Reason Comments Appointment Encounter Details Date Type Department Care Team Description 09/02/2019 Telephone [facility] [place] [address] [place] [address] Soraida Evans MD [address] [place] [address] Appointment Allergies No Known Allergiesdocumented as of this encounter (statuses as of 09/02/2019) Medications Medication Sig Dispensed Refills Start Date [...] as of this encounter (statuses as of 09/02/2019) Active Problems Problem Noted Date Tobacco use disorder 01/04/2002 documented as of this encounter (statuses as of 09/02/2019) Resolved Problems Problem Noted Date Resolved Date Asthma with severity to be determined 09/10/2009 07/18/2016 Overview: Per Asthma Taxonomy ICD-10 update of inactive term Asthma, allergic 01/04/2002 09/10/2009 documented as of this encounter (statuses as of 09/02/2019) Immunizations Name Administration Dates Next Due Pneumococcal Polysaccharide PPV23 (Pneumovax) TDAP (age 10 and older)(Boostrix) 04/24/2014 documented as of this encounter Social History Tobacco Use Types Packs/Day Years Used Date Current Every Day Smoker Cigarettes 0.5 4 Smokeless Tobacco: Current User Snuff Alcohol Use Drinks/Week oz/Week Comments Yes 3 12 oz of beer 3.0 5-6 beers per week Sex Assigned at Date Recorded Not on file Job Start Date Occupation Industry Not on file Not on file Not on file Travel History Travel Start Travel End documented as of this encounter Miscellaneous Notes * Telephone Encounter - Blanquita Orosco OSA - 09/02/2019 12:35 PM EDT Left message for patient to schedule an ER follow up visit can be a video visit. documented in this encounter Plan of Treatment Health Maintenance Due Date Last Done Comments *DEPRESSION SCREENING,ANNUAL FOR PTS 12 AND OVER 07/31/2018 Influenza Vaccine (FLU shot) (Season Ended) 2019 LIPID SCREEN EVERY 5 YRS-MEN AGE 35-75 06/25/2023 06/24/2018, 07/18/2016 DTaP,Tdap,and Td Vaccines (2 - Td) 04/24/2024 04/24/2014 Pneumococcal Vaccine: Pediatrics (0 to 5 Years) and At-Risk Patients (6 to 64 Years) Completed 06/17/2018 MENINGOCOCCAL (MENACTRA/MENVEO) Aged Out No longer eligible b ased on patient's age to complete this topic documented as of this encounter Implants Not on filedocumented as of this encounter Advance Directives Documents on File Type Date Recorded 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
--- OUTSIDE RECORDS SUMMARY | 2022-11-18 01:32 | External Medical Summary | Summary of Care ---
Author Name Unknown Organization [place] [address] Care Team Providers Care Home Organizer Name Role Phone Soraida Evans MD Primary Care Provider [phone] Reason for Visit * Reason Onset Date Comments COVID-19 Screening 03/31/2021 Encounter Details Date Type Department Care Team Description 03/31/2021 Telephone COVID19 Screening [facility] DEPT CLOSED 12/25/20 [address] [place] [address] [id number], Automated Provider COVID-19 Screening Allergies No known active allergiesdocumented as of this encounter (statuses as of 04/01/2021) Medications Medication Sig Dispensed Refills Start Date [...] as of this encounter (statuses as of 04/01/2021) Active Problems Problem Noted Date Tobacco use disorder 01/04/2002 documented as of this encounter (statuses as of 04/01/2021) Resolved Problems Problem Noted Date Resolved Date Asthma with severity to be determined 09/10/2009 07/18/2016 Overview: Per Asthma Taxonomy ICD-10 update of inactive term Asthma, allergic 01/04/2002 09/10/2009 documented as of this encounter (statuses as of 04/01/2021) Immunizations Name Administration Dates Next Due COVID-19 mRNA, LNP-s, No Pre serve, 2-Dose Series (Pfizer) 08/18/2020,07/28/2020 Pneumococcal Polysaccharide PPV23 (Pneumovax) TDAP (age 10 and older)(Boostrix) 04/24/2014 documented as of this encounter Social History Tobacco Use Types Packs/Day Years Used Date Current Every Day Smoker Cigarettes 0.5 4 Smokeless Tobacco: Current User Snuff Alcohol Use Standard Drinks/Week Comments Yes 3 (1 standard drink = 0.6 oz pur e alcohol) 5-6 beers per week Alcohol Habits Answer Date Recorded How often do you have a drink containing alcohol ? Not asked How many drinks containing a lcohol do you have on a typical day when you are drinking? Not asked How often do you have six or more drinks on one occasion? Not asked Comment: 5-6 beers per week 06/17/2018 Sex Assigned at Date Recorded Not on file documented as of this encounter Miscellaneous Notes * Telephone Encounter - Covid Results [facility] - 04/01/2021 5:18 PM EST Outreach Attempts IVR Call Mar 31 2021 1:00PM Answered - Failed to Authenticate IVR Message: Unsuccessful contact, no education provided documented in this encounter Plan of Treatment Health Maintenance Due Date Last Done Comments Depression Screening, Annual for Pts 12 and Over 07/28/2018 07/28/2017 Influenza Vaccine (FLU shot) (#1) 2020 COVID-19 Vaccine (3 - Booste r for Pfizer series) 01/18/2021 08/18/2020, 07/28/2020 LIPID SCREEN EVERY 5 YRS-MEN AGE 35-75 06/25/2023 06/24/2018, 07/18/2016 DTaP,Tdap,and Td Vaccines (2 - Td or Tdap) 04/24/2024 04/24/2014 Pneumococcal Vaccine: Pediatrics (0 to 5 Years) and At-Risk Patients (6 to 64 Years) (2 of 2 - PPSV23) 2044 06/17/2018 GARDASIL-HPV IMMUNIZATION SERIES Aged Out No longer eligible b ased on patient's age to complete this topic MENINGOCOCCAL (MENACTRA/MENVEO) Aged Out No longer eligible b ased on patient's age to complete this topic documented as of this encounter Implants Not on filedocumented as of this encounter Advance Directives Documents on File Type Date Recorded 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
--- OUTSIDE RECORDS SUMMARY | 2022-11-18 01:32 | External Medical Summary ---
Author Name Unknown Address Unknown Organization K1F:[facility] - [address] [place] [address] Ave. [place] [address] Laboratory Report Ordering Provider Test Date Status MG KING 03/29/2021 22:55:42 Final Observation Date Value Abnormality Reference (Units ) Status Adenovirus DNA [Presence] in Nasopharynx by PRADIP with non-probe detection 03/29/2021 22:55:42 Negative Negative Final Human coronavirus 229E RNA [Presence] in Nasopharynx by PRADIP with non-probe detection 03/29/2021 22:55:42 Negative Negative Final Human coronavirus HKU1 RNA [Presence] in Nasopharynx by PRADIP with non-probe detection 03/29/2021 22:55:42 Negative Negative Final Human coronavirus NL63 RNA [Presence] in Nasopharynx by PRADIP with non-probe detection 03/29/2021 22:55:42 Negative Negative Final Human coronavirus OC43 RNA [Presence] in Nasopharynx by PRADIP with non-probe detection 03/29/2021 22:55:42 Positive Abnormal Negative Final Performing Location [facility] - [address] [place] [address]
--- OUTSIDE RECORDS SUMMARY | 2022-11-18 01:32 | External Medical Summary | Summary of Care ---
Author Name Unknown Organization [place] [address] Care Team Providers Care Value Stream Coach Name Role Phone Soraida Evans MD Primary Care Provider Reason for Visit * Reason Comments Emergency Department Follow-Up Encounter Details Date Type Department Care Team Description 06/09/2019 Telephone [facility] [place] [address] [place] [address] Tammy Campo PA-C [address] [place] [address] Emergency Department Follow-Up Allergies No Known Allergiesdocumented as of this encounter (statuses as of 06/09/2019) Medications Medication Sig Dispensed Refills Start Date [...] as of this encounter (statuses as of 06/09/2019) Active Problems Problem Noted Date Tobacco use disorder 01/04/2002 documented as of this encounter (statuses as of 06/09/2019) Resolved Problems Problem Noted Date Resolved Date Asthma with severity to be determined 09/10/2009 07/18/2016 Overview: Per Asthma Taxonomy ICD-10 update of inactive term Asthma, allergic 01/04/2002 09/10/2009 documented as of this encounter (statuses as of 06/09/2019) Immunizations Name Administration Dates Next Due Pneumococcal [...] encounter Miscellaneous Notes * Telephone Encounter - Tammy Campo PA-C - 06/09/2019 8:32 AM EDT Received scanned document that he was in [facility] ED. Can you give him an ER follow up call and see if he needs follow up. Follow up can be telephone or in person. documented in this encounter Plan of Treatment Health Maintenance Due Date Last Done Comments *DEPRESSION SCREENING,ANNUAL FOR PTS 12 AND OVER 07/31/2018 Influenza Vaccine (FLU shot) (#1) 2018 LIPID SCREEN EVERY 5 YRS-MEN AGE 35-75 [...] Documents on File Type Date Recorded Patient Compliance Review Specialist Expl anation Advanced 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
--- OUTSIDE RECORDS SUMMARY | 2022-11-18 01:32 | External Medical Summary | Summary of Care ---
Author Name Unknown Organization [place] [address] Care Team Providers Care Hotel Or Motel Manager Name Role Phone Soraida Evans MD Primary Care Provider Reason for Visit * Reason Comments Emergency Department Follow-Up Encounter Details Date Type Department Care Team Description 06/09/[address] [facility] [place] [address] [place] [address] Tammy Campo PA-C [address] [place] [address] Emergency Department Follow-Up Allergies No [...] encounter Miscellaneous Notes * Telephone Encounter - Teresa Isbell RN - 06/09/2019 11:45 AM EDT Phone Follow Up: The patient was contacted in regards to their recent appointment with Provider ED [facility], 1 day(s) ago, regarding low temp at work. How are your symptoms? Response: Response has improved- Nurse can make decision to schedule or review further with provider to come to decision to schedule. Pt has no symptoms. Declines PCP follow up appointment at this time. number given for change in symptoms, questions, concerns, or to make an appointment. Teresa Isbell RN * Telephone Encounter - Tammy Campo PA-C - 06/09/2019 8:32 AM EDT Received scanned document that he was in [facility] ED. Can you give him an [...] Documents on File Type Date Recorded Patient Assistant Infant Toddler Teacher Expl anation Advanced 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
--- OUTSIDE RECORDS SUMMARY | 2022-11-18 01:32 | External Medical Summary | Summary of Care ---
Author Name Unknown Organization [facility] Address [place] [address] Care Team Providers Care Landscape Engineer Name Role Phone Soraida Evans MD Primary Care Provider [phone] Reason for Visit * Reason Comments Appointment Encounter Details Date Type Department Care Team Description 09/02/2019 Telephone [facility] [place] [address] [place] [address] Soraida Evans MD [address] [place] [address] Appointment Allergies No Known Allergiesdocumented [...] encounter Miscellaneous Notes * Telephone Encounter - Soraida Evans MD - 09/02/2019 9:47 AM EDT Please arrange ED follow up for depression, can be televideo documented in this encounter Plan of Treatment [...] Documents on File Type Date Recorded Patient Nut Picker Expl anation Advanced 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
--- OUTSIDE RECORDS SUMMARY | 2022-11-18 01:32 | External Medical Summary | Summary of Care ---
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
--- OUTSIDE RECORDS SUMMARY | 2022-11-18 01:32 | External Medical Summary | Summary of Care ---
Author Name Unknown Organization [place] [address] Care Team Providers Care Line Servicer Name Role Phone Soraida Evans MD Primary Care Provider [phone] Reason for Visit * Reason Onset Date Comments COVID-19 Screening 03/30/2021 Encounter Details Date Type Department Care Team Description 03/30/2021 Telephone COVID19 Screening [facility] DEPT CLOSED 12/25/20 [address] [place] [address] [id number], Automated Provider COVID-19 Screening Allergies No known active allergiesdocumented as of this encounter (statuses as of 03/31/2021) Medications Medication Sig Dispensed Refills Start Date [...] as of this encounter (statuses as of 03/31/2021) Active Problems Problem Noted Date Tobacco use disorder 01/04/2002 documented as of this encounter (statuses as of 03/31/2021) Resolved Problems Problem Noted Date Resolved Date Asthma with severity to be determined 09/10/2009 07/18/2016 Overview: Per Asthma Taxonomy ICD-10 update of inactive term Asthma, allergic 01/04/2002 09/10/2009 documented as of this encounter (statuses as of 03/31/2021) Immunizations Name Administration Dates Next Due COVID-19 [...] Notes * Telephone Encounter - Covid Results [facility] - 03/31/2021 10:29 PM EST Outreach Attempts Mar 30 2021 9:27AM - Fail to reach patient IVR Message: Unsuccessful contact, no education provided documented in this encounter Plan of Treatment Health Maintenance Due Date Last Done Comments Depression Screening, Annual for Pts 12 and Over 07/28/2018 07/28/2017 Influenza Vaccine (FLU shot) (#1) 2020 COVID-19 Vaccine (3 - Booste r for Pfizer series) 02/17/2021 08/18/2020, 07/28/2020 LIPID SCREEN EVERY 5 YRS-MEN [...] Documents on File Type Date Recorded Patient Maturity Checker Expl anation Advanced 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 Care Teams Line Servicer Relationship Specialty Start Date End Date Soraida Evans MD [address] [facility] [place] [id number] PCP - General Family Medicine 06/17/18 documented as of this encounter
--- OUTSIDE RECORDS SUMMARY | 2022-11-18 01:32 | External Medical Summary | Summary of Care ---
Author [place] [address] Care Team Providers Care Bass Viol Repairer Name Role Phone Soraida Evans MD Primary Care Provider Encounter Details Date Type Department Care Team Description 07/28/2020 Immunization Covid19 Vaccine, [facility] [address] [place] [address] Dose, Covid19 Vaccine A [address] [place] [address] Encounter for immunization* Allergies No Known Active [...] 08/18/2020 Immunization Ancillary Dose, Covid19 Vaccine A [facility] [address] [place] [address] Health Maintenance Due Date Last Done Comments [...] Documents on File Type Date Recorded Patient Shoe Maker Expl anation Advanced 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
--- OUTSIDE RECORDS SUMMARY | 2022-11-18 01:33 | External Medical Summary ---
Author Name Unknown Address [address] [place] [address] [place] [address] Organization K1F:[address] [place] [address] Laboratory Report Ordering Provider Test Date Status YOLANDA JOHNSTON 06/24/2018 10:54:00 Final Observation Date Value Abnormality Reference Status Fasting status Patient Ql Reported 06/24/2018 10:56 >8 HOURS Final Triglyceride 06/24/2018 18:25 122 <200 Final Performing Location [address] [place] [address]
--- OUTSIDE RECORDS SUMMARY | 2022-11-18 01:33 | External Medical Summary | Summary of Care ---
Author Name Unknown Organization [facility] Address [place] [address] Care Team Providers Care Barrel Rifler Operator Name Role Phone Soraida Evasn MD Primary Care Provider Reason for Visit * Reason Comments Follow Up Encounter Details Date Type Department Care Team Description 09/14/2018 Office Visit Orthopaedics, [place] [address] [place] [address] Sohan Pelaez Jr., MD [address] [place] [address] CMC (carpometacarpal joint) dislocation, right, subsequent encounter* Allergies No Known Allergiesdocumented as of this encounter (statuses as of 09/14/2018) Medications Medication Sig Dispensed Refills Start Date End Date Status ibuprofen (MOTRIN) 800 MG Tablet Take 1 Tab by mouth 3 times a day as needed for Pain. 45 Tab 1 09/06/2018 Active oxyCODONE-acetaminophe n 5-325 mg per tab (ENDOCET) 5-325 MG per tablet Take 1 Tab by mouth every 6 hours as needed for Pain, Severe. 36 Tab 0 09/06/2018 Active documented as of this encounter (statuses as of 09/14/2018) Active Problems Problem Noted Date Tobacco use disorder 01/04/2002 documented as of this encounter (statuses as of 09/14/2018) Resolved Problems Problem Noted Date Resolved Date Asthma with severity to be determined 09/10/2009 07/18/2016 Overview: Per Asthma Taxonomy ICD-10 update of inactive term Asthma, allergic 01/04/2002 09/10/2009 documented as of this encounter (statuses as of 09/14/2018) Immunizations Name Administration Dates Next Due Pneumococcal Polysaccharide PPV23 (Pneumovax) TDAP (age 10 and older)(Boostrix) 04/24/2014 documented as of this encounter Social History Tobacco Use Types Packs/Day Years Used Date Current Every Day Smoker Cigarettes 0.5 4 Smokeless Tobacco: Current User Snuff Alcohol Use Drinks/Week oz/Week Comments Yes 3 12 oz of beer 1.8 5-6 beers per week Sex Assigned at Date Recorded Not on file Job Start Date Occupation Industry Not on file Not on file Not on file Travel History Travel Start Travel End documented as of this encounter Progress Notes * Jackie Fong PA-C - 09/14/2018 9:47 AM EDT Subjective Lars Linder is a 38 year old male. Chief Complaint Patient presents with Follow Up HPI: Pt returns to the clinic for 2 wk f/u of right 4th and 5th metacarpal fracture dislocation. Pthas remain in cast for the past week but has not been keeping 4th and 5th fingers tanner taped. Pt notes reducing in amount of swelling he has had. PMH: Patient Active Problem List Diagnosis Code Tobacco use disorder F17.200 Current Outpatient Medications Medication Sig Dispense Refill ibuprofen (MOTRIN) 800 MG Tablet Take 1 Tab by mouth 3 times a day as needed for Pain. 45 Tab 1 oxyCODONE-acetaminophen 5-325 mg per tab (ENDOCET) 5-325 MG per tablet Take 1 Tab by mouth every 6 hours as needed for Pain, Severe. 36 Tab 0 Past Medical History: Diagnosis Date Asthma, severity to be determined infancy through age 9 Past Surgical History: Procedure Laterality Date REMOVE TONSILS & ADENOIDS, UNDER 12 1983 Review of patient's allergies indicates: No Known Allergies Family History Problem Relation Age of Onset Diabetes Father Hypertension Father Neurological Disorder Mother migraines Heart Disorder Grandfather (Maternal) Family Status Relation Status Fa (Not Specified) Mo (Not Specified) MGFA (Not Specified) Social History Socioeconomic History Marital status: Single Spouse name: Not on file Number of children: Not on file Years of education: Not on file Highest education level: Not on file Occupational History 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 Social Needs Financial resource strain: Not on file Food insecurity: Worry: Not on file Inability: Not on file Transportation needs: Medical: Not on file Non-medical: Not on file Tobacco Use Smoking status: Current Every Day Smoker Packs/day: 0.50 Years: 4.00 Pack years: 2.00 Types: Cigarettes Smokeless tobacco: Current User Types: Snuff Substance and Sexual Activity Alcohol use: Yes Alcohol/week: 1.8 oz Types: 3 12 oz of beer per week Comment: 5-6 beers per week Drug use: No Sexual activity: Not Currently Lifestyle Physical activity: Days per week: Not on file Minutes per session: Not on file Stress: Not on file Relationships Social connections: Talks on phone: Not on file Gets together: Not on file Attends evangelical service: Not on file Active member of club or organization: Not on file Attends meetings of clubs or organizations: Not on file Relationship status: Not on file Intimate partner violence: Fear of current or ex partner: Not on file Emotionally abused: Not on file Physically abused: Not on file Forced sexual activity: Not on file Other Topics Concern Not on file Social History Narrative Not on file Review of Systems Constitutional: Negative for fever. Neurological: Negative for numbness. All other systems reviewed and are negative. Objective There were no vitals taken for this visit. Physical Exam Constitutional: He is oriented to person, place, and time. He appears well- developed and well-nourished. HENT: Head: Normocephalic and atraumatic. Mouth/Throat: Oropharynx is clear and moist. Eyes: Conjunctivae are normal. Neck: Normal range of motion. Neck supple. Cardiovascular: Intact distal pulses. Musculoskeletal: Right hand: He exhibits decreased range of motion and swelling. Short arm cast in place and in good condition Neurological: He is alert and oriented to person, place, and time. Skin: Skin is warm and dry. Capillary refill takes less than 2 seconds. Psychiatric: He has a normal mood and affect. X-ray right hand-alignment of 4th and 5th metacarpal in adequate position. Cast in place. ASSESSMENT/PLAN: CMC (carpometacarpal joint) dislocation, right, subsequent encounter (Primary) - XR HAND 3 OR MORE VIEWS Jackie Fong PA-C documented in this encounter Nursing Notes * Zohreh Kim LPN - 09/14/2018 9:40 AM EDT Patient identified by full name and date of F/U R 4th, 5th CMC dislocation, 09/03/18. Cast intact. States pain only if bumped. documented in this encounter Plan of Treatment Upcoming Encounters Date Type Specialty Care Team Description 10/14/2018 Office Visit Orthopedics Latanya Cooper, Sohan Small MD [address] [place] [address] Pending Results Name Type Priority Associated Diagnoses Date /Time XR HAND 3 OR MORE VIEWS Medical Imaging Routine CMC (carpometacarpal joint) dislocation, right, subsequent encounter 09/14/2018 10:05 AM EDT Health Maintenance Due Date Last Done Comments *DEPRESSION SCREENING, [place] FOR PTS 18 AND OVER 07/31/2018 Influenza Vaccine (FLU shot) (#1) 2018 LIPID SCREEN EVERY 5 YRS-MEN AGE 35-75 06/25/2023 06/24/2018, 07/18/2016 DTaP,Tdap,and Td Vaccines (2 - Td) 04/24/2024 04/24/2014 PNEUMOCOCCAL 19-64 MEDIUM RISK Completed 06/17/2018 MENINGOCOCCAL (MENACTRA) Aged Out No longer eligible based on patient's age to complete this topic documented as of this encounter Implants Not on filedocumented as of this encounter Visit Diagnoses Diagnosis CMC (carpometacarpal joint) dislocation, right, subsequent encounter- Primary documented in this encounter Advance Directives Documents on File Type Date Recorded Patient Cascade Operator Expl anation Advanced Directive Advanced Directive Advanced Directive Advanced Directive Advanced Directive
--- OUTSIDE RECORDS SUMMARY | 2022-11-18 01:33 | External Medical Summary | Summary of Care ---
Author Name Unknown Organization [place] [address] Care Team Providers Care Cement Patcher Name Role Phone Soraida Evans MD Primary Care Provider [phone] Reason for Visit * Reason Comments Test Results Lab Encounter Details Date Type Department Care Team Description 06/28/2018 Telephone Acute Care, [place] 27 [facility] [address] [place] [address] Tammy Pineda PA-C 27 [place] [address] Test Results Lab Allergies No Known Allergiesdocumented as of this encounter (statuses as of 06/28/2018) Medications No known medicationsdocumented as of this encounter (statuses as of 06/28/2018) Active Problems Problem Noted Date Tobacco use disorder 01/04/2002 documented as of this encounter (statuses as of 06/28/2018) Resolved Problems Problem Noted Date Resolved Date Asthma with severity to be determined 09/10/2009 07/18/2016 Overview: Per Asthma Taxonomy ICD-10 update of inactive term Asthma, allergic 01/04/2002 09/10/2009 documented as of this encounter (statuses as of 06/28/2018) Immunizations Name Dates Previously Given Next Due Pneumococcal Polysaccharide PPV23 (Pneumovax) TDAP [...] Miscellaneous Notes * Telephone Encounter - Tammy Pineda PA-C - 06/28/2018 8:33 AM EDT Lipids normal. Negative for all STDs. 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 documented in this encounter Plan of Treatment Health Maintenance Due Date Last Done Comments Influenza Vaccine (FLU shot) (#1) 2017 LIPID SCREEN EVERY 5 YRS-MEN AGE 35-75 06/25/2023 06/24/2018, 07/18/2016 DTaP,Tdap,and Td Vaccines (2 - Td) 04/24/2024 04/24/2014 PNEUMOCOCCAL 19-64 MEDIUM RISK Completed 06/17/2018 MENINGOCOCCAL (MENACTRA) Aged Out No longer eligible based on patient's age to complete this topic documented as of this encounter Implants Not on filedocumented as of this encounter Advance Directives Patient has advance care planning documents on file. For more information, please contact: [place] [phone]
--- OUTSIDE RECORDS SUMMARY | 2022-11-18 01:33 | External Medical Summary ---
Author Name Unknown Address [address] [id number] Phone Organization K01:[facility] [address] [id number] Laboratory Report Ordering Provider Test Date Status YOLANDA JOHNSTON 06/24/2018 10:54:00 Final Observation Date Value Abnormality Reference Status RPR Ser Ql 06/25/2018 10:58 NONREACTIVE NR Final Performing Location [facility] [address] [facility] [address]
--- OUTSIDE RECORDS SUMMARY | 2022-11-18 01:33 | External Medical Summary | Summary of Care ---
Author Name Unknown Organization [place] [address] Care Team Providers Care Lathe Set Up Person Name Role Phone Soraida Evans MD Primary Care Provider Encounter Details Date Type Department Care Team Description 10/24/2018 Scan Encounter Unspecified Department <No scans attached> Allergies No Known Allergiesdocumented as of this encounter (statuses as of 10/26/2018) Medications Medication Sig Dispensed Refills Start Date [...] as of this encounter (statuses as of 10/26/2018) Active Problems Problem Noted Date Tobacco use disorder 01/04/2002 documented as of this encounter (statuses as of 10/26/2018) Resolved Problems Problem Noted Date Resolved Date Asthma with severity to be determined 09/10/2009 07/18/2016 Overview: Per Asthma Taxonomy ICD-10 update of inactive term Asthma, allergic 01/04/2002 09/10/2009 documented as of this encounter (statuses as of 10/26/2018) Immunizations Name Administration Dates Next Due Pneumococcal [...] Documents on File Type Date Recorded Patient Healthcare Educator Expl anation Advanced 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
--- OUTSIDE RECORDS SUMMARY | 2022-11-18 01:33 | External Medical Summary | Summary of Care ---
Author Name Unknown Organization [place] [address] Care Team Providers Care Induction Furnace Operator Name Role Phone Soraida Evans MD Primary Care Provider Reason for Visit * Reason Comments Test Results Lab Encounter Details Date Type Department Care Team Description 06/28/2018 Telephone Acute Care, [place] 27 [facility] [address] [place] [address] Tammy Pineda PA-C 27 [place] [address] Test Results Lab Allergies No [...] encounter Miscellaneous Notes * Telephone Encounter - Evie Tai MED ASSIST - 06/28/2018 11:28 AM EDT Patient has been informed of below message and verbalized understanding. * Telephone Encounter - Tammy Pineda PA-C [...] For more information, please contact: [place] [address]
--- OUTSIDE RECORDS SUMMARY | 2022-11-18 01:33 | External Medical Summary ---
Author Name Unknown Address [address] [place] [address] Organization K1F:[address] [address] Laboratory Report Ordering Provider Test Date Status YOLANDA JOHNSTON 06/24/2018 10:59:00 Final Observation Date Value Abnormality Reference Status Source 06/24/2018 11:01 CLEAN CATCH URINE Final C trach rRNA XXX Ql PCR 06/25/2018 14:23 NO CHLAMYDIA TRACHOMATIS DETECTED BY GRINDER HARDBOARD-MEDIATE D NUCLEIC ACID AMPLIFICATION. NCTA Final comment 06/25/2018 14:23 APTIMA COMBO2 (AC2) UNISEX SWAB COLLECTION KIT IS FDA APPROVED FOR FEMALE ENDOCERVICAL AND MALE URETHRAL SPECIMENS. AC2 VAGINAL SWAB COLLECTION KIT IS FDA APPROVED FOR FEMALE VAGINAL SPECIMENS. Final Performing Location [address] [address]
--- OUTSIDE RECORDS SUMMARY | 2022-11-18 01:33 | External Medical Summary | Summary of Care ---
Author Name Unknown Organization [place] [address] Care Team Providers Care Rn Eligibility Name Role Phone Soraida Evans MD Primary Care Provider Encounter Details Date Type Department Care Team Description 12/15/2018 Scan Encounter Unspecified Department <No scans attached> Allergies No Known Allergiesdocumented as of this encounter (statuses as of 12/17/2018) Medications Medication Sig Dispensed Refills Start Date [...] as of this encounter (statuses as of 12/17/2018) Active Problems Problem Noted Date Tobacco use disorder 01/04/2002 documented as of this encounter (statuses as of 12/17/2018) Resolved Problems Problem Noted Date Resolved Date Asthma with severity to be determined 09/10/2009 07/18/2016 Overview: Per Asthma Taxonomy ICD-10 update of inactive term Asthma, allergic 01/04/2002 09/10/2009 documented as of this encounter (statuses as of 12/17/2018) Immunizations Name Administration Dates Next Due Pneumococcal [...] (6 to 64 Years) Completed 06/17/2018 MENINGOCOCCAL (MENACTRA) Aged Out No longer eligible based on patient's age to complete this topic documented as of this encounter Implants Not on filedocumented as of this encounter Advance Directives Documents on File Type Date Recorded Patient Field Marketing Manager Expl anation Advanced 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
--- OUTSIDE RECORDS SUMMARY | 2022-11-18 01:33 | External Medical Summary ---
Author Name Unknown Address [address] [place] [address] [place] Price [address] Phone Organization K0G:KHARI Arora [address] [facility] [place] [address] Laboratory Report Ordering Provider Test Date Status GERRYRAEANN 07/18/2016 08:56:00 Final Observation Date Value Abnormality Reference Status Fasting status - Reported 07/18/2016 09:00 12 Final Triglyceride 07/18/2016 13:40 232 Above high normal <2 00 Final Performing Location [facility] Tulio Arora [address] [facility] [place] [address]
--- OUTSIDE RECORDS SUMMARY | 2022-11-18 01:33 | External Medical Summary | Summary of Care ---
Author Name Unknown Organization [place] [address] Care Team Providers Care Car Hop Name Role Phone Soraida Evans MD Primary Care Provider [phone] Reason for Visit * Reason Comments NEW PATIENT Right wrist injury * Evaluate & Treat - Unlimited Visits (Within 3 days (urgent)) Status Reason Specialty Diagnoses / Procedures Referred By Contact Referred To Contact Pending Review Specialty Services Required Orthopaedic Surgery Diagnoses Dislocation of carpometacarpal joint of right hand, initial encounter Closed boxer's fracture, initial encounter Jerilyn Gooden PA-C [address] [place] [address] Encounter Details Date Type Department Care Team Description 09/06/2018 Office Visit Orthopaedics, Aung Becerra [address] [place] [address] Sohan Pelaez Jr., MD [address] [place] [address] CMC (carpometacarpal joint) dislocation, right, initial encounter*; Injury of right hand Allergies No Known Allergiesdocumented as of this encounter (statuses as of 09/10/2018) Medications Medication Sig Dispensed Refills Start Date [...] as of this encounter (statuses as of 09/10/2018) Active Problems Problem Noted Date Tobacco use disorder 01/04/2002 documented as of this encounter (statuses as of 09/10/2018) Resolved Problems Problem Noted Date Resolved Date Asthma with severity to be determined 09/10/2009 07/18/2016 Overview: Per Asthma Taxonomy ICD-10 update of inactive term Asthma, allergic 01/04/2002 09/10/2009 documented as of this encounter (statuses as of 09/10/2018) Immunizations Name Administration Dates Next Due Pneumococcal [...] Travel End documented as of this encounter Last Filed Vital Signs Vital Sign Reading Time Taken Comments Blood Pressure - - Pulse - - Temperature - - Respiratory Rate - - Oxygen Saturation - - Inhaled Oxygen Concentration - - Weight 86.6 kg (191 lb) 09/06/2018 2:51 PM EDT Height 177.8 cm (5' 10") 09/06/2018 2:51 PM EDT Body Mass Index 27.41 09/06/2018 2:51 PM EDT documented in this encounter Progress Notes * Latanya Cooper, Sohan Small MD - 09/06/2018 4:03 PM EDT Please see dictation for documentation on this encounter. Nursing Notes: Suzie Blancas MED ASSIST 09/06/18 1452 Signed Right wrist injury. Pt stated he does have pain and his pain can be present up into his elbow at times. Pt is wearing a splint. Suzie Blancas MED ASSIST Today's Vitals: Ht 5' 10" (1.778m) | Wt 191 lbs (86.637kg) | BMI 27.41 kg/m | BSA 2.07 m Review of patient's allergies indicates: No Known Allergies No current outpatient medications on file. Past Medical History: Diagnosis Date Asthma, severity to be determined infancy through age 9 Patient Active Problem List Diagnosis Code Tobacco use disorder F17.200 Past Surgical History: Procedure Laterality Date REMOVE TONSILS & ADENOIDS, UNDER 12 1984 Sohan Pelaez Jr, MD 09/06/2018 4:03 PM documented in this encounter Nursing Notes * Suzie Blancas MED ASSIST - 09/06/2018 2:51 PM EDT Right wrist injury. Pt stated he does have pain and his pain can be present up into his elbow at times. Pt is wearing a splint. Suzie Blancas MED ASSIST documented in this encounter Plan of Treatment Upcoming Encounters Date Type Specialty Care Team Description 09/14/2018 Office Visit Orthopedics Latanya Cooper, Sohan Small MD [address] [place], [place] [id number] Pending Results Name Type Priority Associated Diagnoses Date /Time XR HAND 3 OR MORE VIEWS Medical Imaging Routine Injury of right hand 09/06/2018 4:01 PM EDT Health Maintenance Due Date Last Done Comments *DEPRESSION SCREENINGDAMON FOR PTS 18 AND OVER 07/31/2018 Influenza Vaccine (FLU shot) (Season Ended) 2018 LIPID SCREEN EVERY 5 YRS-MEN AGE 35-75 06/25/2023 06/24/2018, 07/18/2016 DTaP,Tdap,and Td Vaccines (2 - Td) 04/24/2024 04/24/2014 PNEUMOCOCCAL 19-64 MEDIUM RISK Completed 06/17/2018 MENINGOCOCCAL (MENACTRA) Aged Out No longer eligible based on patient's age to complete this topic documented as of this encounter Implants Not on filedocumented as of this encounter Visit Diagnoses Diagnosis CMC (carpometacarpal joint) dislocation, right, initial encounter- Primary Injury of right hand Injury, other and unspecified, hand, except finger documented in this encounter Advance Directives Documents on File Type Date Recorded Patient Lubrication Servicer Expl anation Advanced Directive Advanced Directive Advanced Directive Advanced Directive Advanced Directive
--- OUTSIDE RECORDS SUMMARY | 2022-11-18 01:33 | External Medical Summary | Summary of Care ---
Author Name Unknown Organization [facility] Address [place] [address] Care Team Providers Care Deli Associate Name Role Phone Soraida Evans MD Primary Care Provider Reason for Visit * Reason Comments After Hours Call Encounter Details Date Type Department Care Team Description 09/29/2018 Telephone [facility] 27 [facility] [place] [id number] Berkley Guy PA-C 27 [facility] [place] [id number] After Hours Call Allergies No Known Allergiesdocumented as of this encounter (statuses as of 09/30/2018) Medications Medication Sig Dispensed Refills Start Date [...] as of this encounter (statuses as of 09/30/2018) Active Problems Problem Noted Date Tobacco use disorder 01/04/2002 documented as of this encounter (statuses as of 09/30/2018) Resolved Problems Problem Noted Date Resolved Date Asthma with severity to be determined 09/10/2009 07/18/2016 Overview: Per Asthma Taxonomy ICD-10 update of inactive term Asthma, allergic 01/04/2002 09/10/2009 documented as of this encounter (statuses as of 09/30/2018) Immunizations Name Administration Dates Next Due Pneumococcal Polysaccharide PPV23 (Pneumovax) 04 /06/2018 TDAP (age 10 and older)(Boostrix) 04/24/2014 documented [...] encounter Miscellaneous Notes * Telephone Encounter - Zohreh Kim LPN - 09/30/2018 11:43 AM EDT Pt advised per Marianne Paige earlier this morning to come to office right away. Stated he neededto wait for gf and would be right up. * Telephone Encounter - Berkley Guy PA-C - 09/29/2018 5:41 PM EDT After hours call: Lars called stating he was walking home from work today in the rain and his rightarm cast got wet. He has been applying a towel to the cast and it seems to be drying out. He also states he has been having hand pain and radiating pain up the right arm. I recommended keeping the cast as dry as possible and I informed him I would forward the message to Dr. Pelaez's office for further guidance. documented in this encounter Plan of Treatment Upcoming Encounters Date Type Specialty Care Team Description 10/14/2018 Office Visit Orthopedics Latanya Cooper, Sohan Small MD [address] [place] [address] Health Maintenance Due Date Last Done Comments [...] Documents on File Type Date Recorded Patient Screw Supervisor Expl anation Advanced Directive Advanced Directive Advanced Directive Advanced Directive Advanced Directive
--- OUTSIDE RECORDS SUMMARY | 2022-11-18 01:33 | External Medical Summary ---
Author Name Unknown Address [address] [place] [address] Phone Organization K01:[place] [id number] Laboratory Report Ordering Provider Test Date Status YOLANDA JOHNSTON 06/24/2018 10:54:00 Final Observation Date Value Abnormality Reference Status HSV1 IgG Ser Ql EIA 06/25/2018 09:20 POSITIVE Abnormal NEG Final HSV-1 IgG, Quant. 06/25/2018 09:20 5.76 Above high normal <0.90 Final HSV-2 IgG, Quant. 06/25/2018 09:20 NEGATIVE NEG Final HSV2 IgG Ser Ql EIA 06/25/2018 09:20 0.111 <0.90 Final HSV 1 and 2 IgG Ser EIA-Imp 06/25/2018 09:20 This assay is type specific for HSV1 and HSV2 IgG. Final Performing Location [place] [id number]
--- OUTSIDE RECORDS SUMMARY | 2022-11-18 01:33 | External Medical Summary | Summary of Care ---
Author Name Unknown Organization [place] [address] Care Team Providers Care Central Scheduler Name Role Phone Soraida Evans MD Primary Care Provider Encounter Details Date Type Department Care Team Description 06/08/2019 Scan Encounter Unspecified Department <No scans attached> [...] Documents on File Type Date Recorded Patient Business Programmer Expl anation Advanced 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
--- OUTSIDE RECORDS SUMMARY | 2022-11-18 01:33 | External Medical Summary | Summary of Care ---
Author Name Unknown Organization [facility] Address [place] [address] Care Team Providers Care Take Out Waiter/Waitress Name Role Phone Soraida Evans MD Primary Care Provider [phone] Reason for Visit * Reason Comments Casting Encounter Details Date Type Department Care Team Description 09/30/2018 Office Visit Orthopaedics, Aung Becerra [address] [place] [address] Sohan Pelaez Jr., MD [address] [place] [address] CMC (carpometacarpal joint) dislocation, right, subsequent encounter* Allergies No Known Allergiesdocumented as of this encounter (statuses as of 10/04/2018) Medications Medication Sig Dispensed Refills Start Date [...] as of this encounter (statuses as of 10/04/2018) Active Problems Problem Noted Date Tobacco use disorder 01/04/2002 documented as of this encounter (statuses as of 10/04/2018) Resolved Problems Problem Noted Date Resolved Date Asthma with severity to be determined 09/10/2009 07/18/2016 Overview: Per Asthma Taxonomy ICD-10 update of inactive term Asthma, allergic 01/04/2002 09/10/2009 documented as of this encounter (statuses as of 10/04/2018) Immunizations Name Administration Dates Next Due Pneumococcal [...] as of this encounter Progress Notes * Sohan Pelaez Jr., MD - 10/04/2018 1:57 PM EDT Please see dictation for documentation on this encounter. Nursing Notes: Daylin Salcedo LPN 09/30/18 1227 Signed Patient Identified by: Name/birthdate. Patient here for recasting right hand. Today's Vitals: There were no vitals taken for this visit. Review of patient's allergies indicates: No Known Allergies Current Outpatient Medications Medication Sig Dispense Refill [...] UNDER 12 1984 Sohan Pelaez Jr, MD 10/04/2018 1:57 PM documented in this encounter Nursing Notes * Daylin Salcedo LPN - 09/30/2018 12:26 PM EDT Patient Identified by: Name/birthdate. Patient here for recasting right hand. documented in this encounter Miscellaneous Notes * Outpatient clinic note - Sohan Pelaez Jr., MD - 09/30/2018 5:02 PM EDT CLINIC NOTES [facility] MR #[id number] : 1980 ORTHOPAEDIC SURGERY OUTPATIENT NOTE -- AUNG MIN 09/30/2018 HISTORY OF PRESENT ILLNESS: This 38-year-old returns today for followup of his right hand injury. This patient had a fracture dislocation involving the 4th and 5th CMC joints. Had it reduced in the emergency department. We placed him in a hand cast. He had to do some walking in the rain the other day and got the cast soaked. He took it off this morning and took a shower before he came in here. Now about 1 month out from the injury. 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 Good function of the hand. IMAGING: X rays obtained today reveal that the joints are still well reduced. IMPRESSION: Patient doing well now almost a month out from his fracture dislocation of the 4th and 5th CMC joints. PLAN: Discussed findings with the patient. I would probably protect him a little bit longer. We placed him in an ulnar gutter Exos splint. He can take it off for bathing purposes but basically wear it at all times for at least another couple of weeks and keep his previously made followup appointment. We will see him at that time for followup visit and X ray and see if we can wean him out of his sp lint at that time. Sohan Pelaez Jr, MD HHD/TB: Doc#: [id number] documented in this encounter Plan of Treatment Upcoming Encounters Date Type Specialty Care Team Description 10/14/2018 Office Visit Orthopedics Sohan Pelaez Jr., MD [address] [facility] [address] [place] [address] Health Maintenance Due Date Last Done Comments *DEPRESSION SCREENING, [place] FOR PTS 18 AND OVER 07/31/2018 Influenza [...] Not on filedocumented as of this encounter Procedures Procedure Name Priority Date/Time Associated Diagnosis Comments XR HAND 3 OR MORE VIEWS Routine 09/30/2018 1:18 PM EDT CMC (carpometacarpal joint) dislocation, right, subsequent encounter documented in this encounter Results * XR HAND 3 OR MORE VIEWS (09/30/2018 1:18 PM EDT) Specimen Impressions Performed At IMPRESSION As above [facility] Narrative Performed At EXAM Right hand-09/30/2018 1:18 pm HISTORY Cast removed COMPARISON XR HAND 3 OR MORE VIEWS dated 09/14/2018; XR HAND 3 OR MORE VIEWS dated 09/03/2018 TECHNIQUE Three views FINDINGS Prior 4th and 5th CMC fracture dislocation with subsequent reduction.Fractures are healed.Alignment remains anatomic. [facility] Procedure Note Interface, Rad In - 10/04/2018 10:53 AM EDT EXAM Right hand-09/30/2018 1:18 pm HISTORY Cast removed COMPARISON XR HAND 3 OR MORE VIEWS dated 09/14/2018; XR HAND 3 OR MORE VIEWS dated09/03/2018 TECHNIQUE Three views FINDINGS Prior 4th and 5th CMC fracture dislocation with subsequent reduction.Fractures are healed. Alignment remains anatomic. IMPRESSION IMPRESSION As above Performing Organization Address City/State/Zipcod e Phone Number [facility] documented in this encounter Visit Diagnoses Diagnosis CMC (carpometacarpal joint) dislocation, right, subsequent encounter- Primary documented in this encounter Advance Directives Documents on File Type Date Recorded Patient Geosciences Faculty Member Expl anation Advanced Directive Advanced Directive Advanced Directive Advanced Directive Advanced Directive Advanced Directive
--- OUTSIDE RECORDS SUMMARY | 2022-11-18 01:33 | External Medical Summary | Summary of Care ---
Author Name Unknown Organization [facility] Address [place] [address] Care Team Providers Care Long Distance Operator Name Role Phone Soraida Evans MD Primary Care Provider Reason for Visit * Reason Comments Emergency Department Follow-Up Orthopedi cs Encounter Details Date Type Department Care Team Description 09/06/2018 Telephone Orthopaedics, Aung Becerra [address] [place] [address] Sohan Pelaez Jr., MD [address] [place] [address] Emergency Department Follow-Up (Orthopedics) Allergies No Known Allergiesdocumented as of this encounter (statuses as of 09/06/2018) Medications No known medicationsdocumented as of this encounter (statuses as of 09/06/2018) Active Problems Problem Noted Date Tobacco use disorder 01/04/2002 documented as of this encounter (statuses as of 09/06/2018) Resolved Problems Problem Noted Date Resolved Date Asthma with severity to be determined 09/10/2009 07/18/2016 Overview: Per Asthma Taxonomy ICD-10 update of inactive term Asthma, allergic 01/04/2002 09/10/2009 documented as of this encounter (statuses as of 09/06/2018) Immunizations Name Administration Dates Next Due Pneumococcal [...] encounter Miscellaneous Notes * Telephone Encounter - Mallory Zacarias OSA - 09/06/2018 9:11 AM EDT Per Jackie Fong- patient can be scheduled today or tomorrow. He is scheduled for today at 1 PM and is aware of the appointment * Telephone Encounter - Mallory Zacarias OSA - 09/06/2018 8:09 AM EDT Patient was in the ER on 09/03 with a hand injury. When can he be scheduled? documented in this encounter Plan of Treatment Upcoming Encounters Date Type Specialty Care Team Description 09/06/2018 Office Visit Orthopedics Latanya Cooper, Sohan Small MD [address] [place], [place] [id number] Health Maintenance Due Date Last Done Comments [...] Documents on File Type Date Recorded Patient Personal Loan Specialist Expl anation Advanced Directive Advanced Directive Advanced Directive Advanced Directive Advanced Directive
--- OUTSIDE RECORDS SUMMARY | 2022-11-18 01:33 | External Medical Summary ---
Author Name Unknown Address [facility] [place] [address] Phone Organization K01:[place] [address] [id number] Laboratory Report Ordering Provider Test Date Status RAEANN GARRETT 07/18/2016 08:56:00 Final Observation Date Value Abnormality Reference Status HIV 1+2 Ab+HIV1 p24 Ag [Presence] in Serum or Plasma by Immunoassay 07/18/2016 14:59 NONREACTIVE NR Fi nal Performing Location [facility] [address] [facility] [address]
--- OUTSIDE RECORDS SUMMARY | 2022-11-18 01:33 | External Medical Summary | Summary of Care ---
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 Name Role Phone Soraida Evans MD Primary Care Provider Encounter Details Date Type Department Care Team Description 12/07/2018 Scan Encounter Unspecified Department <No scans attached> Allergies No Known Allergiesdocumented as of this encounter (statuses as of 12/09/2018) Medications Medication Sig Dispensed Refills Start Date [...] as of this encounter (statuses as of 12/09/2018) Active Problems Problem Noted Date Tobacco use disorder 01/04/2002 documented as of this encounter (statuses as of 12/09/2018) Resolved Problems Problem Noted Date Resolved Date Asthma with severity to be determined 09/10/2009 07/18/2016 Overview: Per Asthma Taxonomy ICD-10 update of inactive term Asthma, allergic 01/04/2002 09/10/2009 documented as of this encounter (statuses as of 12/09/2018) Immunizations Name Administration Dates Next Due Pneumococcal [...] Documents on File Type Date 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
--- OUTSIDE RECORDS SUMMARY | 2022-11-18 01:33 | External Medical Summary ---
Author Name Unknown Address [address] [facility] [place] [address] Phone Organization K0G[place] [place] Tulio Arora [address] [facility] [place] [address] Laboratory Report Ordering Provider Test Date Status RAEANN GARRETT 07/18/2016 08:56:00 Final Observation Date Value Abnormality Reference Status Glucose 07/18/2016 12:41 95 70-120 Fin al Performing Location [facility] [place] [address] [facility] [place] [address]
--- OUTSIDE RECORDS SUMMARY | 2022-11-18 01:33 | External Medical Summary ---
Author Name Unknown Address [facility] [place] [address] Phone Organization K01:[facility] [address] [id number] Laboratory Report Ordering Provider Test Date Status VICKIEYOLANDA HINOJOSA 06/24/2018 10:54:00 Final Observation Date Value Abnormality Reference Status HIV 1+2 Ab+HIV1 p24 Ag [id number] 06/24/2018 22:33 NONREACTIVE NR Final Performing Location [facility] [address] [facility] [address]
--- OUTSIDE RECORDS SUMMARY | 2022-11-18 01:33 | External Medical Summary | Summary of Care ---
Author Name Unknown [facility] [place] [facility] [address] Care Team Providers Care Varnish Dipper Name Role Phone Soraida Evans MD Primary Care Provider [phone] Reason for Visit * Reason Comments Physical-Exam pt here for px exam. Encounter Details Date Type Department Care Team Description 06/17/2018 Office Visit [facility] [place] [address] [facility] [place] [id number] Tammy Pineda PA-C [address] [place], [place] [phone] Routine physical examination*; Tobacco use disorder; Need for pneumococcal vaccination; Screening for STD (sexually transmitted disease); Lipid screening Allergies No Known Allergiesdocumented as of this encounter (statuses as of 06/17/2018) Medications Medication Sig Dispensed Refills Start Date End Date Status Triamcinolone Acetonide 0.5 % creamIndications:R wild and nonspecific skin eruption Apply topically to affected area 2 times a day. To affected area on right ankle for up to two weeks 15 g 0 12/06/2016 06/17/2018 Discontinued documented as of this encounter (statuses as of 06/17/2018) Active Problems Problem Noted Date Tobacco use disorder 01/04/2002 documented as of this encounter (statuses as of 06/17/2018) Resolved Problems Problem Noted Date Resolved Date Asthma with severity to be determined 09/10/2009 07/18/2016 Overview: Per Asthma Taxonomy ICD-10 update of inactive term Asthma, allergic 01/04/2002 09/10/2009 documented as of this encounter (statuses as of 06/17/2018) Immunizations Name Dates Previously Given Next Due [...] Vital Signs Vital Sign Reading Time Taken Blood Pressure 102/72 06/17/2018 10:20 AM EDT Pulse 74 06/17/2018 10:20 AM EDT Temperature 36.5 C (97.7 F) 06/17/2018 1 0:20 AM EDT Respiratory Rate 14 06/17/2018 10:2 0 AM EDT Oxygen Saturation 97% 06/17/2018 10: 20 AM EDT Inhaled Oxygen Concentration - - Weight 93.4 kg (206 lb) 06/17/2018 10:2 0 AM EDT Height 177.8 cm (5' 10") 06/17/2018 10: 20 AM EDT Body Mass Index 29.56 06/17/2018 10:20 AM EDT documented in this encounter Patient Instructions * Patient Instructions* Lynn Mendoza LPN - 06/17/2018 10:22 AM EDT ~~PATIENT INSTRUCTIONS FOR PNEUMOCOCCAL VACCINE~~ Possible side effects of pneumococcal vaccine, (pneumonia shot), are usually mild and can include: 1. Soreness or redness at injection site 2. Low grade fever 3. Body aches You may use Tylenol/Acetaminophen as needed for these symptoms. LET YOUR DOCTOR KNOW IMMEDIATELY IF YOU HAVE DIFFICULTY BREATHING OR SWALLOWING, EXPERIENCE ITCHINGOF FEET OR HANDS, HAVE SWELLING OF EYES, FACE OR INSIDE OF NOSE. documented in this encounter Progress Notes * Tammy Pineda PA-C - 06/17/2018 10:22 AM EDT Nursing Notes: Lynn Mendoza LPN 06/17/18 1023 Signed Chief Complaint Patient presents with Physical-Exam pt here for px exam. Subjective Lars Linder is a 38 year old male who presents for annual physical exam. He has been generally well and denies any specific complaints with the exception of those outlined below. His girlfriend would like him screened for STDs before they are sexually active. He is not currently experiecing any symptoms including lesions or discharge. Has started smoking again due to a lot of stress in his personal life. Fighting for custody of his daughter. Currently smoking 1/2PPD. PMH: Patient Active Problem List Diagnosis Code Tobacco use disorder F17.200 No current outpatient medications on file. Past Medical History: Diagnosis Date Asthma, severity to be determined infancy through age 9 Past Surgical History: Procedure Laterality Date REMOVE TONSILS & ADENOIDS, UNDER 12 1984 Review of patient's allergies indicates: No Known Allergies Family History Problem Relation Age of Onset Diabetes Father Hypertension Father Neurological Disorder Mother migraines Heart Disorder Grandfather (Maternal) Family Status Relation Status Fa (Not Specified) Fa (Not Specified) Mo (Not Specified) MGFA (Not Specified) Social History Socioeconomic History Marital status: Single Spouse name: Not on file Number of children: Not on file Years of education: Not on file Highest education level: Not on file Social Needs Financial resource strain: Not on file Food insecurity - worry: Not on file Food insecurity - inability: Not on file Transportation needs - medical: Not on file Transportation needs - non-medical: Not on file Occupational History 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 HENT: Negative for congestion, ear pain, hearing loss, sinus pain and sore throat. Eyes: Negative for pain, discharge, itching and visual disturbance. Respiratory: Negative for shortness of breath. Cardiovascular: Negative for chest pain and leg swelling. Gastrointestinal: Negative for constipation, diarrhea, nausea and vomiting. Endocrine: Negative. Genitourinary: Negative for difficulty urinating and dysuria. Musculoskeletal: Negative. Skin: Negative. Neurological: Negative for dizziness, light-headedness and headaches. Psychiatric/Behavioral: Negative for suicidal ideas. BP 102/72 | Pulse 74 | Temp (Src) 97.7 (Temporal Artery) | Resp 14 | Ht 5' 10" (1.778m) | Wt 206 lbs (93.441kg) | BMI 29.56 kg/m | BSA 2.15 m | SaO2 97% Physical Exam: General: alert, healthy and no distress Head: Normocephalic, No masses, lesions, tenderness or abnormalities Eye Exam: PERRLA, EOMI, Conjunctiva are pink and non-injected, sclera clear Ears: External ears normal, Canals clear, TM's Normal Nose: no mucosal erythema, no mucosal edema, no purulent discharge Oropharynx: no exudate, no erythema, lips, buccal mucosa, and tongue normal and mucous membranes are moist Neck: supple, no adenopathy, no bruits, thyroid normal size, non-tender, without nodularity Lymph: no palpable lymphadenopathy Heart: regular rate & rhythm, no murmurs and no gallops Lungs: chest symmetric with normal AP diameter, no chest deformities noted, no chest wall tenderness, lungs clear to auscultation Pulses: radial=2/4, carotid=2/4 w/o bruits Abdomen: abdomen soft, non-tender, normal bowel sounds and no masses or organomegaly Back: back symmetric, no curvature, no costovertebral angle tenderness, range of motion is normal Extremities: less than 2 second capillary refill, no joint deformities, effusion, or inflammation Neuro Exam: alert & oriented x 3 with fluent speech, no focal motor/sensory deficits, gait normal, reflexes normal and symmetric ASSESSMENT/PLAN: Z00.00 Routine physical examination (primary encounter diagnosis) F17.200 Tobacco use disorder Z23 Need for pneumococcal vaccination Plan: Immunizations/injection: 1. Pneumococcal vacc, ppv23, 2 years and older, im Z11.3 Screening for std (sexually transmitted disease) Plan: Lab: 1. Neisseria amplified Future expected: 06/17/2018 2. Chlamydia amplified 3. Rpr Future expected: 06/17/2018 4. Herpes simplex 1 and 2 (pcr) 5. Hiv ag&ab screen w/ confirmation Future expected: 06/17/2018 Z13.220 Lipid screening Plan: Lab: 1. Lipid panel with direct ldl if tg above 150 mg/dl Future expected: 06/17/2018 Follow up: Return in about 1 year (around 06/18/2019). Tammy Pineda PA-C [facility], [address] [facility] [address] * Lynn Mendoza LPN - 06/17/2018 10:22 AM EDT Immunization Administration Documentation Time Out Procedure Performed: Yes Patient Identified (Ask Name/Date of ): Yes Does the patient have a fever greater than 101 degrees today? No Patient allergic to latex? No VFC Stock: No Immunization(s) verified: Yes, Immunization Name: Pneumovax (Pneumococcal Adult), VIS Sheet(s) given: Yes Verified Side and Site: Yes Verified Shot(s) with Parent(s)/Patient: Yes documented in this encounter Nursing Notes * Lynn Mendoza LPN - 06/17/2018 10:19 AM EDT Chief Complaint Patient presents with Physical-Exam pt here for px exam. documented in this encounter Plan of Treatment Scheduled Tests Name Priority Associated Diagnoses Order S chedule NEISSERIA AMPLIFIED Routine Screening for STD (sexually transmitted disease) Expected: 06/17/2018 (Approximate), Expires: 09/16/2018 CHLAMYDIA AMPLIFIED Routine Screening for STD (sexually transmitted disease) Ordered: 06/17/2018 RPR Routine Screening for STD (sexually transmitted disease) Expected: 06/17/2018 (Approximate), Expires: 06/17/2019 HERPES SIMPLEX 1 AND 2 (PCR) Routine Screening for STD (sexually transmitted disease) Ordered: 06/17/2018 HIV AG&AB SCREEN W/ CONFIRMATION Routine Screening for STD (sexually transmitted disease) Expected: 06/17/2018 (Approximate), Expires: 06/17/2019 LIPID PANEL WITH DIRECT LDL IF TG ABOVE 150 MG/DL Routine Lipid screening Expected: 06/17/2018, Expires: 06/18/2019 Health Maintenance Due Date Last Done Comments Influenza Vaccine (FLU shot) (#1) 2017 LIPID SCREEN EVERY 5 YRS-MEN AGE 35-75 07/18/2021 07/18/2016 DTaP,Tdap,and Td Vaccines (2 - Td) 04/24/20242014 PNEUMOCOCCAL 19-64 MEDIUM RISK Completed 06/17/2018 MENINGOCOCCAL (MENACTRA) Aged Out No longer eligible based on patient's age to complete this topic documented as of this encounter Implants Not on filedocumented as of this encounter Visit Diagnoses Diagnosis Routine physical examination- Primary Routine general medical examination at a health care facility Tobacco use disorder Need for pneumococcal vaccination Need for prophylactic vaccination against streptococcus pneumoniae (pneumococcus) Screening for STD (sexually transmitted disease) Screening examination for venereal disease Lipid screening Screening for lipoid disorders documented in this encounter Advance Directives Patient has advance care planning documents on file. For more information, please contact: [place] [id number]
--- OUTSIDE RECORDS SUMMARY | 2022-11-18 01:33 | External Medical Summary ---
Author Name Unknown Address [facility] [place] [address] Phone Organization K01:[facility] [address] [id number] Laboratory Report Ordering Provider Test Date Status YOLANDA JOHNSTON 06/24/2018 10:54:00 Final Observation Date Value Abnormality Reference Status HSV1+2 IgM Ser [facility]IA-[facility] 06/26/2018 14:57 0.33 <0.91 Final HSV IgM Ser Ql EIA 06/26/2018 14:57 NEGATIVE Final Testosterone Comment 06/26/2018 14:57 A negative result indicates no current or reactivated infection with HSV-1 or HSV-2. Final Performing Location [facility] [address] [facility] [address]
--- OUTSIDE RECORDS SUMMARY | 2022-11-18 01:33 | External Medical Summary ---
Author Name Unknown Address [address] [place] [id number] Organization K1F:[address] [address] Laboratory Report Ordering Provider Test Date Status VICKIE,SAS 06/24/2018 10:59:00 Final Observation Date Value Abnormality Reference Status Source 06/24/2018 11:01 CLEAN CATCH URINE Final N gonorrhoea rRNA XXX Ql PCR 06/25/2018 14:23 NO NEISSERIA GONORRHOEAE DETECTED BY DIESEL MECHANIC APPRENTICE-MEDIATE D NUCLEIC ACID AMPLIFICATION. NGCTMA Final comment 06/25/2018 14:23 APTIMA COMBO2 (AC2) UNISEX SWAB COLLECTION KIT IS FDA APPROVED FOR FEMALE ENDOCERVICAL AND MALE URETHRAL SPECIMENS. AC2 VAGINAL SWAB COLLECTION KIT IS FDA APPROVED FOR FEMALE VAGINAL SPECIMENS. Final Performing Location [address] [address]
== END 2022-11-16 10:14 | disposition home or self-care (01) | DRG 872 ==
LOC: ED 09:46 → EDINP 12:28 → SUATTDRO 12:28 → EDINP 15:06 → 3E 17:13